=== PATIENT | female | born 1940 | race Caucasian/White ===

== ENCOUNTER 2018-10-04 10:21 | Inpatient (IN) | payer MEDICARE, BC ==
[2018-10-04] MEDS ORDERED: Morphine 2 MG/ML SYRINGE ONE ×3 (10:40→11:35)
[2018-10-04 10:48] LABS: #Lymphocytes 1.2 thou/uL (1.20-3.40); #Monocytes 0.8 thou/uL (0.11-0.59); #Neutrophils 11.3 thou/uL (1.40-6.50); %Basophils 0.4 % (0.0-1.0); %Eosinophils 0.1 % (0.0-10.0); %Lymphocytes 8.7 % (21.0-51.0); %Monocytes 5.8 % (0.0-10.0); Hemoglobin 16.7 g/dL (12.0-16.0); Mean Corpuscular HGB CONC 30.8 g/dL (32.0-36.0); Mean Corpuscular Hemoglobin 26.8 pg (27.0-31.0); Mean Platelet Volume 8.8 fL (7.4-10.4); Platelet Count 247 thou/uL (130-400); RBC Distribution Width 14.1 % (11.5-14.5); Red Blood Cell (RBC) Count 6.23 mill/uL (4.20-5.40); White Blood Cell (WBC) Count 13.3 thou/uL (4.8-10.8)
[2018-10-04] MEDS ORDERED: Ondansetron PF 4 MG/2 ML Vial ONE ×2 (11:06→14:13)
[2018-10-04 11:19] LABS: CKMB 1.4 ng/mL (0-6.6); Troponin I Less than 0.010 ng/mL (< 0.028)
[2018-10-04 11:20] LABS: ALT (SGPT) 14 U/L (8-55); AST (SGOT) 18 U/L (5-34); Alkaline Phosphatase 82 U/L (40-150); Anion Gap 16 mmol/L (10-20); BUN (Urea Nitrogen) 17 mg/dL (9.8-20.1); Bilirubin, Total 1.3 mg/dL (0.2-1.2); CK (CPK) 20 U/L (29-168); Calc. Creatinine Clearance 0 mL/min (70-130); Calcium 10.4 mg/dL (7.8-10.44); Carbon Dioxide 27 mmol/L (23-31); Chloride 100 mmol/L (98-107); Estimated GFR-MDRD 63; Globulin 3.7 g/dL (2.4-3.5); Glucose 189 mg/dL (83-110); Lipase 5 U/L (8-78); Potassium 4.3 mmol/L (3.5-5.1); Protein, Total 7.7 g/dL (6.0-8.3); Sodium 139 mmol/L (136-145)
--- NOTE | 2018-10-04 13:00 | CT ---
CT ABDOMEN AND PELVIS: 10/04/2018 HISTORY: Epigastric pain. Nausea and vomiting. History of ulcerative colitis. COMPARISON: None available. TECHNIQUE: Serial axial CT imaging is obtained at 5 mm intervals, from the lung bases through the pubic symphysi s, without contrast. Coronal reformatted imaging obtained. FINDINGS: The lack of contrast media significantly limits assessment of the viscera, bowel, and vascular struct ures, and for lymphadenopathy. The patient was not administered IV contrast secondary to a reported history of an anaphylactic reaction. There is coronary arterial calcification and there is calcification at the level of the mitral annulu s, incompletely assessed on this exam. The lung bases demonstrate increased linear interstitial dens ity. No free intraperitoneal air is noted. The uterus appears surgically absent. There is small volume, abnormal, perihepatic, and perisplenic free fluid. There is abnormal free fluid noted in the bilater al paracolic gutters as well, right greater than left. Limited assessment of the liver, gallbladder, and spleen demonstrate no acute findings. There is fatty atrophy of the pancreas. The adrenal glands appear grossly unremarkable. Neither kid suman appears obstructed. There is an exophytic cyst emanating from the upper pole of the left kidney. Scattered diverticula of the descending colon and sigmoid colon is seen. No evidence for diverticuli tis. There are multiple abnormal loops of small bowel within the mid lower abdomen, extending into the rig ht lower quadrant. These loops of abnormal small bowel demonstrate wall thickening and are best seen from axial image 49 through axial image 74. There is adjacent stranding of the mesenteric fat with increased density along the vasculature of the mesentery in this region. Vascular structures are poorly assessed on this examination. There is extensive atherosclerotic calc ification of the abdominal aorta and its branches, including the bilateral common internal and apiculturist al iliac arteries. There is atherosclerotic calcification at the origin of the KHARI, celiac artery, a nd bilateral renal arteries. There is fluid within multiple nondilated loops of small bowel in the left upper quadrant. Review of the osseous structures demonstrates a hip prosthesis on the right. The bones are demineral ized. There is multilevel scattered degenerative change noted within the imaged spine. IMPRESSION: There are multiple abnormal thick-walled loops of small bowel within the midline lower abdomen, exten ding into the right lower abdomen/right hemipelvis. There is significant abnormal free fluid noted i n the abdomen/pelvis as well. No free intraperitoneal air. Findings are suspicious for a nonspecifi c enteritis. This includes small bowel ischemia. Inflammatory/infectious process possible as well. A surgical consultation is suggested. Correlation with lactate levels advised as well. Developing small bowel obstruction cannot be excluded. Results called to Dr. Jorje Shaikh at 11:30 a.m. on 10/04/2018. CODE CR POS: [facility]
[2018-10-04] MEDS ORDERED: hydrALAZINE 20 MG/ML VIAL ONE (13:09)
[2018-10-04] MEDS ORDERED: Acetaminophen 650 MG Suppository PR PRN (13:36)
[2018-10-04] MEDS ORDERED: hydrALAZINE 20 MG/ML VIAL SLOW IVP PRN (14:48)
--- NOTE | 2018-10-04 15:28 | HP ---
PRIMARY CARE PROVIDER: Dwain Samuels M.D. CHIEF COMPLAINT: Abdominal pain. HISTORY OF PRESENT ILLNESS: Ms. Larsen is a pleasant 78-year-old lady who was seen at [facility] on 10/04/2018. She was hospitalized at this facility in 04/2016 for Clostrid ium difficile diarrhea and flareup of ulcerative colitis. She was also positive for cryptosporidium antigen during that admission. Her inside sales representative is Dr. Shook and she reports seeing her about 3 months ago. She reports that she woke up feeling fine yesterday morning. Around 9:00 a.m., she felt nauseous and vomited. At the same time, she had abdominal pain. She describes it as in the epigastric region, r adiating to the back, accompanied by nausea and vomiting. She reports vomiting 5 times yesterday and another 4 times overnight. She denies any blood in the vomitus. She reports that she had a small b owel movement today morning. There was no blood in the stool. She reports that she has ongoing naus ea. The pain itself is currently 4/10. It was 10/10 at its worst. She had 3 tablespoons of potato soup without any potato. She started having nausea again. She presented to the emergency room [facility] of ongoing abdominal pain as well as nausea. She reports that the pain felt slightly better when she is lying on the side than when she was lying on her back. REVIEW OF SYSTEMS: All other systems reviewed and found to be negative. PAST MEDICAL HISTORY: Hypertension, ulcerative colitis, myocardial infarction, dyslipidemia, obstruc tive sleep apnea syndrome on CPAP therapy and left eye macular degeneration. PAST SURGICAL HISTORY: Tonsillectomy, appendectomy, right knee surgery, hysterectomy, bladder prolap se surgery, enterocele, oophorectomy, right foot surgery, cardiac stents x3, total right hip replacem ent and bilateral total knee replacement. PSYCHIATRIC HISTORY: Anxiety. FAMILY HISTORY: Significant for stroke and myocardial infarction in her mother. SOCIAL HISTORY: No history of tobacco use, alcohol use or recreational drug use. CODE STATUS: I discussed her code status. She is FULL CODE. ALLERGIES: IODINE, to which she reports anaphylactic reaction. BETA BLOCKERS, CEFDINIR, CLONIDINE, DOXYCYCLINE, NITROFURANTOIN, NONSTEROIDAL ANTI-INFLAMMATORY AGENTS, POTASSIUM CHLORIDE, SPIRONOLACTON E and SULFA. CURRENT MEDICATIONS: Amlodipine 5 mg daily; Plavix 75 mg tablet, half tablet in the morning and half in the evening; Crestor 40 mg at bedtime, lisinopril 40 mg daily, Humira pen use every other ay, eplerenone 25 mg 2 times a day, alprazolam 0.75 mg in the morning and evening, [place] p.r.n., omep razole 20 mg daily, Coenzyme Q10 of 200 mg daily, Ocuvite 1 tablet daily, vitamin D with calcium 1 ta blet daily and tramadol p.r.n. PHYSICAL EXAMINATION: GENERAL: On examination, Ms. Larsen is awake and alert, not in acute distress. VITAL SIGNS: Blood pressure is 110/70, pulse 68, respiratory rate 19, and oxygen saturation 100% on room air. She is afebrile. EYES: No scleral icterus. No conjunctival pallor. ENT: Dry mucosal membranes, no oropharyngeal erythema or exudates. NECK: Supple, nontender, trachea is midline. RESPIRATORY: Accessory muscles of breathing are not active. Chest wall movements are symmetric bila terally. LUNGS: Clear to auscultation without wheeze, rhonchi or crepitations. CARDIOVASCULAR: S1 and S2 are heard, regular. Peripheral pulses palpable. No carotid bruit, no per icardial rub. ABDOMEN: Soft, mild epigastric tenderness, no guarding or rigidity, mild tenderness in the right low er quadrant, no guarding or rigidity, bowel sounds are heard, Bains sign is negative, no hepatomegal y, no splenomegaly. NEUROLOGIC: Cranial nerves II-XII intact, deep tendon reflexes are 2+. MUSCULOSKELETAL: Power is 5/5 in all 4 extremities. SKIN: No rashes or subcutaneous nodules. LYMPHATIC: No cervical lymphadenopathy. PSYCHIATRIC: Normal mood, normal affect, patient is oriented to person, place, and time. LABORATORY DATA: Ms. Larsen's labs and investigations were reviewed. I reviewed her electrocard iogram, which shows sinus bradycardia, no ST changes to suggest an acute coronary syndrome. I also r eviewed CT scan of abdomen and pelvis done without intravenous contrast. She has multiple abnormal t hick-walled loops of small bowel extending from the midline lower abdomen to the right lower quadrant . She also has free fluid in the abdomen and pelvis. She has leukocytosis with 13,300 white cells, of which 85% are neutrophils, elevated hemoglobin of 16.7, normal platelet count, normal electrolytes , normal creatinine, total bilirubin elevated at 1.3, globulin elevated at 3.7, normal troponin I, no rmal AST, normal ALT, normal alkaline phosphatase and a low lipase level of 5. ASSESSMENT AND PLAN: Ms. Larsen is a pleasant 78-year-old lady who was seen at [facility] on 09/24/2018. Her problem list includes: 1. Abdominal pain: Exact etiology unclear at this time. Patient will be admitted to the hospital f or further management. I note that she has an elevated lactic acid level of 2.9, and a repeat lactat e is pending. The differential diagnosis is wide and includes infectious enteritis as well as ischem ic bowel. Because of allergy to CONTRAST, I cannot obtain a CT angiogram at this time. I will arran ge for CT angiogram in the morning after preparing her for IODINE allergy. We will also consult [facility] for opinion and help with management. We will keep patient n.p.o. for now and st art her on p.r.n. intravenous antihypertensives. We will also consult [facility] for op inion and help with management. 2. Hypertension: Start p.r.n. IV antihypertensives. 3. Coronary artery disease: Appears to be stable. The patient does not complain of any chest pain. She has a normal troponin I. 4. Dyslipidemia: Continue statins when patient is able to take oral medications. 5. Leukocytosis: Etiology unclear, could be secondary to dehydration since she also has polycythemi a. We will provide intravenous fluids and recheck. She is currently afebrile and there is no eviden ce of infection, she is not being started on antibiotics. Many thanks for allowing me to participate in your patient's care. Please feel free to contact me wi th any questions or concerns. LEVEL OF RISK: High. LEVEL OF COMPLEXITY: High.
[2018-10-04 15:52] LABS: Lactic Acid 2.1 mmol/L (0.5-2.2)
[2018-10-04 16:34] VITALS: BMI 28.1
[2018-10-04] MEDS ORDERED: Morphine 4 MG/ML VIAL SLOW IVP PRN (16:54)
[2018-10-04] MEDS: Sodium Chloride 0.9% 1,000 ML IV SCH ×2 (17:06→20:22)
[2018-10-04] MEDS ORDERED: Fentanyl 100 MCG/2 ML VIAL SLOW IVP SCH (19:15)
--- NOTE | 2018-10-04 20:57 | CON ---
DATE OF CONSULTATION: 10/04/2018 REQUESTING PHYSICIAN: Dr. Yeboah. HISTORY OF PRESENT ILLNESS: This is an 78-year-old woman who presented to the emergency de partment today with worsening nonspecific crampy abdominal pain which started approximately 1800 hour s yesterday. Pain was rated 5/10 onset and has progressed to 10/10 this morning associated now with multiple episodes of nausea and nonbilious emesis. Patient denies any diarrhea. She denies any feve rs or chills. Her last bowel movement was yesterday. She has not had anything to eat today. She aaron d a little bit of Clarita Tia this morning and has vomited multiple times since that time. She has no t experienced a similar pain in the past. PAST MEDICAL HISTORY: Significant for essential hypertension, ulcerative colitis, coronary arterial disease of which the patient is status post myocardial infarction, she has hyperlipidemia, obstructiv e sleep apnea and left eye macular degeneration. PAST SURGICAL HISTORY: Pertinent for bilateral total knee arthroplasties, right hip arthroplasty, ch ildhood tonsillectomy and adenoidectomy, childhood appendectomy at age 9, total hysterectomy with bi lateral salpingo-oophorectomy, coronary angiography with placement of 3 coronary arterial stents. Karen jeronimo has also had bladder suspension for bladder prolapse. FAMILY HISTORY: Noncontributory for this patient's age. PREHOSPITAL MEDICATIONS. This includes Humira 40 mg subcutaneously, Xanax 0.5 mg p.o. at bedtime, am lodipine 5 mg p.o. daily, vitamin D3 of 2000 units p.o. daily, clopidogrel 37.5 mg p.o. b.i.d., epler enone 12.5 mg p.o. b.i.d., [place] 10/325 mg p.o. daily, lisinopril 40 mg p.o. at bedtime, omeprazole 2 0 mg p.o. daily, prednisone 40 mg p.o. daily, simvastatin 20 mg p.o. daily, Florastor 250 mg p.o. b.i .d., CoQ10 of 200 mg p.o. at bedtime, Ocuvite soft gel 1 capsule p.o. daily. ALLERGIES: IODINE. REVIEW OF SYSTEMS: A 10-point review of system is essentially unremarkable except for as stated in p ast medical history and chief complaint. PHYSICAL EXAMINATION: GENERAL: This reveals an 78-year-old normally-developed woman who is otherwise coherent and interact sonu and appears stated age. Patient is alert and oriented x3. She appears to be in moderate acute d istress secondary to abdominal pain. VITAL SIGNS: Includes blood pressure 110/70, pulse is 68, respiratory rate is 19, temperature is 98. 2 degrees Fahrenheit, oxygen saturation 100% on room air. HEENT: Reveals normocephalic and atraumatic. Pupils are equal, round, and reactive to light and acc ommodation. Extraocular muscles are intact bilaterally. No sclerae icterus present. Oral mucosa is pink though dry. She no oral lesions noted. HEART: Reveals regular rate and rhythm, no murmurs or gallops auscultated. LUNGS: Clear to auscultation bilaterally. Her breathing is regular and unlabored. ABDOMEN: Soft and nondistended. She has diffuse tenderness to palpation with no gross rebound tende rness present. Liver and spleen nonpalpable below costal margin. Bowel sounds in all four quadrants appear normoactive. EXTREMITIES: Reveals 2+ radial and pedal pulses bilaterally. No ankle edema is present. NEUROLOGIC: Reveals no focal deficits present. LABORATORY FINDINGS: Today includes a CBC with 13,300 white blood cells, hemoglobin and hematocrit 1 6.7 and 54.2 respectively. Platelet count is 247,000. Metabolic profile: Sodium 139, potassium is 4.3, chloride is 100, bicarbonate is 27, BUN is 17, creatinine 0.87, glucose is 189. Lactic acid is 2.9, total bilirubin is 1.3, AST and ALT normal at 18 and 14 respectively. Troponin I is less than 0 .10. Serum lipase is normal at 5. I personally reviewed the noncontrast CT scan of the abdomen and pelvis which is remarkable for multi ple fairly-distended loops of small bowel with a thick wall. This is mostly limited to the left uppe r quadrant. There is moderate amount of free fluid in the pelvis. No pneumoperitoneum is evident. IMPRESSION: Nonspecific abdominal pain, likely secondary to ischemic enterocolitis versus gastroente ritis. Given the patient's history of coronary artery disease, we must exclude ischemic etiology of this abdominal pain and limited radiological findings. PLAN: Continue with bowel rest and IV hydration. The patient is allergic to IODINE; therefore, I re commend that we pretreat her and then obtain planned CT angiography of the abdomen and pelvis tomorro w to define the anatomy of mesenteric vasculature. There is no acute surgical indication for this pa tient at this time. We will continue with serial physical examination and make further recommendatio ns as necessary. Above findings and plan have been discussed with the patient, her of 55 years and her adult s on all at bedside. They indicated understanding of information given. I have answered their questio ns. Thank you again, Dr. Yeboah for allowing me the opportunity to participate in the care of this patient .
[2018-10-05] MEDS ORDERED: predniSONE 50 MG TAB PO SCH ×3 (02:15→14:00)
[2018-10-05] MEDS: Fentanyl 100 MCG/2 ML VIAL SLOW IVP PRN ×3 (03:34→17:51)
[2018-10-05 04:57] LABS: #Monocytes 1.8 thou/uL (0.11-0.59); #Neutrophils 15.1 thou/uL (1.40-6.50); %Basophils 0.2 % (0.0-1.0); %Lymphocytes 5.7 % (21.0-51.0); %Monocytes 9.8 % (0.0-10.0); %Neutrophils 84.2 % (42.0-75.0); Hemoglobin 16.5 g/dL (12.0-16.0); Mean Corpuscular HGB CONC 29.6 g/dL (32.0-36.0); Mean Corpuscular Volume 87.8 fL (78.0-98.0); Mean Platelet Volume 8.9 fL (7.4-10.4); Platelet Count 251 thou/uL (130-400); RBC Distribution Width 14.4 % (11.5-14.5); Red Blood Cell (RBC) Count 6.35 mill/uL (4.20-5.40)
[2018-10-05 05:00] LABS: Anion Gap 14 mmol/L (10-20); BUN (Urea Nitrogen) 24 mg/dL (9.8-20.1); Calc. Creatinine Clearance 54 mL/min (70-130); Calcium 9.1 mg/dL (7.8-10.44); Carbon Dioxide 29 mmol/L (23-31); Chloride 105 mmol/L (98-107); Estimated GFR-MDRD 55; Glucose 178 mg/dL (83-110); Potassium 4.5 mmol/L (3.5-5.1); Sodium 143 mmol/L (136-145)
[2018-10-05] MEDS: Sodium Chloride 0.9% 1,000 ML IV SCH ×2 (08:18→23:05)
--- NOTE | 2018-10-05 12:35 | PRG ---
DATE OF SERVICE: 10/05/2018 SUBJECTIVE: Ms. Laresn is an 78-year-old woman admitted yesterday with abdominal pain. Suspicio n of acute ischemic enterocoliis has been investigated with serial abdominal examination. The patien t has been pretreated for iodine allergy prior to repeat CT scan of the abdomen and pelvis with IV co ntrast to evaluate mesenteric vasculature. This morning, the patient reports significant improvement in abdominal pain which she now rates at 3/10 to 4/10 in contrast to 9/10 to 10/10 yesterday. Nause a is also resolving. She has adequate urinary output. OBJECTIVE: VITAL SIGNS: This morning, blood pressure is noted at 154/76, pulse is 96, respiratory rate is 16, t emperature is 97.9 degrees Fahrenheit, oxygen saturation 98% on room air. HEENT: Reveals normocephalic and atraumatic. HEART: Reveals regular rate and rhythm. No murmurs or gallops auscultated. LUNGS: Clear to auscultation bilaterally. Her breathing is regular and unlabored. ABDOMEN: Soft, moderately distended but no significant tenderness to palpation. She clearly has no rebound tenderness present. Liver and spleen nonpalpable below costal margin. NEUROLOGIC: Reveals no focal deficits present. LABORATORY FINDINGS: Today include CBC now with 18,000 white blood cells, hemoglobin and hematocrit 16.5 and 55.7 respectively. Platelet count is 251,000. Metabolic Profile: Sodium 143, potassium is 4.5, chloride is 105, bicarbonate is 29, BUN 24, creatinine is 0.98, glucose is 178. IMPRESSION: 1. Post-admission day #1 with resolving abdominal pain. 2. Probable acute ischemic enterocolitis pending repeat CT scan of the abdomen and pelvis with IV co ntrast. It is also considerable that this may be resolving acute gastroenteritis. PLAN: 1. Continue bowel rest pending CT scan of the abdomen and pelvis. 2. No further surgical indication for this patient at this time. We will review the abdominal CT sc an and make further recommendations as necessary.
[2018-10-05] MEDS ORDERED: diphenhydrAMINE 50 MG CAP PO SCH (14:00)
--- NOTE | 2018-10-05 15:45 | PDOC.PN ---
- Subjective Encounter Start Date: 10/05/18 Encounter Start Time: 11:45 Subjective: pt up in bed still has significant abdominal pain - Objective Resuscitation Status: Resuscitation Status FULL:Full Resuscitation Vital Signs & Weight: Vital Signs (12 hours) Temp Pulse Resp BP Pulse Ox 10/05/18 15:42 98.9 F 105 H 19 166/92 H 10/05/18 11:07 97.9 F 96 16 154/76 H 98 10/05/18 07:53 99 10/05/18 07:32 98.1 F 110 H 19 131/77 98 10/05/18 04:00 97.6 F 99 20 120/77 97 Weight Weight 164 lb I&O: 10/04/18 10/05/18 10/06/18 06:59 06:59 06:59 Intake Total 1540 0 Output Total 200 Balance 1340 0 Result Diagrams: 10/05/18 04:25 10/05/18 04:25 Phys Exam - Physical Examination Neck: no nodes, no JVD, supple, full ROM Respiratory: no wheezing, no rales, no rhonchi, wheezing present, clear to auscultation bilateral Cardiovascular: RRR, no significant murmur, no rub, gallop, irregular Gastrointestinal: soft, positive bowel sounds pain on palpation all over Musculoskeletal: no edema, pulses present, edema present Dx/Plan (1) Abdominal pain Code(s): R10.9 - UNSPECIFIED ABDOMINAL PAIN Status: Acute (2) Nausea & vomiting Code(s): R11.2 - NAUSEA WITH VOMITING, UNSPECIFIED Status: Acute (3) Ulcerative colitis Code(s): K51.90 - ULCERATIVE COLITIS, UNSPECIFIED, WITHOUT COMPLICATIONS Status: Acute - Plan pt states that she still has abdominal pain -: Received a call from radiology concerning for volvulus which could -: be impairing her vasculature. Surgeon was informed. -: pt takes humira one a week every other week. Denies any diarrhea * . Review of Systems - Review of Systems ENT: negative: Ear Pain, Ear Discharge, Nose Pain, Nose Discharge, Nose Congestion, Mouth Pain, Mouth Swelling, Throat Pain, Throat Swelling, Other Respiratory: negative: Cough, Dry, Shortness of Breath, Hemoptysis, SOB with Excertion, Pleuritic Pain, Sputum, Wheezing Cardiovascular: negative: chest pain, palpitations, orthopnea, paroxysmal nocturnal dyspnea, edema, light headedness, other Gastrointestinal: Abdominal Pain Genitourinary: negative: Dysuria, Frequency, Incontinence, Hematuria, Retention , Other - Medications/Allergies Allergies/Adverse Reactions: Allergies Allergy/AdvReac Type Severity Reaction Status Date / Time adhesive tape Allergy Verified 10/04/18 16:05 Beta-Blockers Allergy Verified 10/04/18 16:05 (Beta-Adrenergic Bloc betamethasone Allergy Verified 10/04/18 16:05 [From Celestone] cefdinir Allergy Verified 10/04/18 16:05 clonidine Allergy Verified 10/04/18 16:05 doxycycline Allergy Verified 10/04/18 16:05 iodine Allergy Verified 05/10/16 16:55 nitrofurantoin Allergy Verified 10/04/18 16:05 NSAIDS (Non-Steroidal Allergy Verified 10/04/18 16:05 Anti-Inflamma potassium chloride Allergy Verified 10/04/18 16:05 spironolactone Allergy Verified 10/04/18 16:05 Medications: Current Medications Acetaminophen (Tylenol) 650 mg SC Q4H PRN PRN Reason: Headache/Fever/Mild Pain (1-3) Fentanyl (Sublimaze) 12.5 mcg SLOW IVP Q6H PRN PRN Reason: Pain Last Admin: 10/05/18 09:51 Dose: 12.5 mcg Hydralazine HCl (Apresoline) 10 mg SLOW IVP Q6H PRN PRN Reason: SBP Greater Than 170 Sodium Chloride (Normal Saline 0.9%) 1,000 mls @ 100 mls/hr IV .Q10H RON Last Admin: 10/05/18 08:18 Dose: 1,000 mls Morphine Sulfate (Morphine) 2 mg SLOW IVP Q4H PRN PRN Reason: Severe Pain (7-10) Last Admin: 10/04/18 17:05 Dose: 2 mg
--- NOTE | 2018-10-05 15:58 | CT ---
CTA OF THE ABDOMEN AND PELVIS UTILIZING IV CONTRAST AND 3D REFORMATTED IMAGING: COMPARISON: Recent noncontrast CT of the abdomen and pelvis dated 10/04/2018. FINDINGS: There is a cirrhotic morphology to the liver. No definite focal hepatic lesion is evident. There is a peripheral area of increased [id number] within the peripheral aspect of the right lower hepatic lobe which may be related to transient hepatic attenuation difference. There is moderate to severe narro wing involving the origin and proximal aspect of the celiac artery. There is mild trace free fluid. The adrenal gland is normal-appearing. There are left and right renal cysts. SMA is widely patent. The renal arteries appear widely patent. KHARI is slightly patent. There is rotation of the vascula ture of the right lower quadrant mesentery with limited opacification of the mesenteric arcade of the dilated loop of inflamed small bowel within the right lower quadrant suspicious for an internal volv ulus with vascular occlusion of portions of the pedicle of the SMA. There is good opacification of t he radicals within the left upper quadrant of the abdomen. There are scattered diverticula involving the colon. The colon is partially decompressed. There is diffuse osteopenia. There is scattered d egenerative and osteoarthritic change. IMPRESSION: 1. Findings most consistent with an internal volvulus with limited perfusion of the superior mesente chetan artery arcades to loops of small bowel in the right lower quadrant causing changes of ischemic max wel. There is some mild dilatation of the upstream bowel loops which are likely reactive in nature. Findings were called to Dr. Yeboah at 3:30 p.m. on 10/05/2018. Surgical consultation is recommended. 2. 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 3. Cirrhotic morphology of the liver. Mild ascites. 4. Renal cysts. 5. Colonic diverticulosis. 6. Small bilateral pleural effusions. CODE CR POS: [facility]
[2018-10-05 18:20] LABS: INR-International Normal Ratio 1.1; PTT 23.9 SEC (22.9-36.1); Prothrombin Time 14.4 SEC (12.0-14.7)
[2018-10-05] MEDS ORDERED: Ondansetron HCl/PF 4 MG/2 ML Vial IVP PRN ×2 (18:52→22:24)
[2018-10-05] MEDS ORDERED: Fentanyl 100 MCG/2 ML VIAL ONE ×2 (18:59→19:40)
[2018-10-05] MEDS ORDERED: Bupivacaine/Epinephrine 0.25% 30 ML VIAL ONE (19:40)
[2018-10-05] MEDS ORDERED: Lidocaine 2% Jelly 5 ML TUBE ONE (19:40)
[2018-10-05] MEDS ORDERED: MEROPENEM 1 GM/50 ML 1 GM in Premix Bag 1 BAG IVPB SCH (20:00)
[2018-10-05] MEDS ORDERED: Phenylephrine HCL 10 MG/ML VIAL ONE (20:37)
[2018-10-05] MEDS ORDERED: Promethazine HCl 25 MG/ML VIAL SLOW IVP PRN (22:24)
[2018-10-05] MEDS ORDERED: Promethazine HCl 25 MG/ML VIAL IM PRN (22:24)
[2018-10-05] MEDS ORDERED: HYDROmorphone 2 MG/ML VIAL SLOW IVP PRN (22:24)
[2018-10-05] MEDS ORDERED: PACU-Morphine 4MG/ML VIAL SLOW IVP PRN (22:24)
[2018-10-06] MEDS: Acetaminophen 1,000 MG in Premix Bag 1 BAG IVPB SCH ×4 (00:11→17:48)
--- NOTE | 2018-10-06 00:24 | OP ---
DATE OF PROCEDURE: 10/05/2018 INDICATIONS FOR PROCEDURE: Ms. Larsen is an 78-year-old woman who presented with a 24-hour histo ry of severe crampy abdominal pain for which she was admitted on 10/04/2018. Noncontrast abdominal C T scan revealed multiple thick-walled small bowel and significant free fluid suspicious for either vi ral gastroenteritis or ischemic enteritis. The patient had IODINE allergy and was therefore pretreat ed for an IV contrast, CT scan of the abdomen and pelvis today. She continues to have abdominal pain , although slightly improved. CT scan of the abdomen and pelvis today revealed small bowel volvulus with a compromised vascular anatomy. The patient was brought to the operating room for surgical eval uation. DESCRIPTION OF PROCEDURE: Informed consent obtained from the patient who was brought to the operatin g room and placed in supine position. Following general anesthesia, a Martínez catheter was inserted an d placed bedside drain. Nasogastric tube inserted and placed to wall suction. Abdomen is sterilely prepped and draped in usual fashion. Skin below the umbilicus was infiltrated with 0.25% Marcaine wi th epinephrine. A small curvilinear infraumbilical incision is made using an 11 scalpel. Umbilical stalk was grasped with Lucio's and elevated. Veress needle was inserted through this incision and p laced in the peritoneal cavity through which the abdomen was insufflated with 3 liters of CO2 gas. I ntraabdominal pressure noted at 2 mmHg. Following abdominal insufflation, Veress needle was removed and a 5 mm trocar introduced using the Visiport under laparoscopy. Laparoscopy confirmed proper plac ement of the port, no injuries to underlying structures. Additional laparoscopy revealed large amoun t of hemorrhagic ascites. Further laparoscopy reveals dense pelvic adhesions, so it was decided conv ert this to exploratory laparotomy. To achieve this, abdomen was desufflated. A midline incision is made using #10 scalpel. Incision was carried through subcutaneous tissues maintaining hemostasis us ing cautery. Fascia incised in midline exposing the peritoneum beneath which was grasped x2 with hem ostats. The peritoneal cavity was sharply entered using Metzenbaum scissors. Incision was then exte nded superiorly and inferiorly. A 1600 mL of hemorrhagic ascites was evacuated from the peritoneal c avity. Bookwalter retractor was put in place to gain exposure. Small bowel was run from the ligamen t of Treitz down to distal jejunum to proximal ileum which was completely trapped in the dense adhesi on and the pelvis. Of significance; however, was a portion of the involved general ileal segment in a volvulus fashion. Adhesions were meticulously taken down using Metzenbaum scissors, taking care to avoid enterotomies. There was an adhesive band, which trapped approximately 2 feet in length of dis ac ileum in a closed loop obstructive fashion. This adhesive band was excised. The remainder of th e small bowel was inspected and no other pathology was noted. The mesentery was purplish looking. T he bowel itself appeared initially to be dusky, but once the adhesive band was excised, a small amoun t of peristalsis was noticed in the involved bowel segment. The rest of the large intestine was insp ected from the cecum through the ascending, transverse, descending, sigmoid colon and rectum. No oth er pathology identified. The abdominal cavity was irrigated clear with saline solution noting good h emostasis in place. I observed the involved distal ileum for approximately 10 minutes. The bowel it self began to pink up with better peristalsis. Therefore, we decided to avoid bowel resection at thi s time. We placed a sheet of Seprafilm in the deep pelvis prior to returning small bowel to normal a natomic location. A second large piece of Seprafilm was placed over the small bowel and omentum was drawn over the remainder of the viscera. Fascia was approximated in midline using a running stitch o f #1 single stranded PDS. Subcutaneous tissue was irrigated clear with saline solution and performed hemostasis using cautery. Deep tissues approximated using interrupted sutures of 2-0 Vicryl. Skin incision was then approximated using a running stitch of 4-0 Monocryl suture in subcuticular fashion. The infraumbilical curvilinear incision was also closed using interrupted sutures of 4-0 Monocryl. Dermabond was applied over the incisional closure. The patient tolerated the operation without any apparent complication and was returned to the recovery room in satisfactory condition.
[2018-10-06] MEDS: Sodium Chloride 0.9% 1,000 ML IV SCH ×2 (01:55→13:30)
[2018-10-06 04:09] LABS: Band 8 % (5-11); Lymphocytes 20 % (21-51); MDiff Complete? YES; Mean Corpuscular HGB CONC 31.5 g/dL (32.0-36.0); Mean Corpuscular Hemoglobin 27.4 pg (27.0-31.0); Mean Corpuscular Volume 87.2 fL (78.0-98.0); Mean Platelet Volume 9.9 fL (7.4-10.4); Monocytes 8 % (0-10); Neutrophil 64 % (42-75); PLT Morphology Comment Appears Adequate; Platelet Count 127 thou/uL (130-400); RBC Distribution Width 14.4 % (11.5-14.5); Red Blood Cell (RBC) Count 5.47 mill/uL (4.20-5.40); White Blood Cell (WBC) Count 11.6 thou/uL (4.8-10.8)
[2018-10-06 04:15] LABS: ALT (SGPT) 12 U/L (8-55); AST (SGOT) 16 U/L (5-34); Albumin 2.6 g/dL (3.4-4.8); Alkaline Phosphatase 50 U/L (40-150); Anion Gap 13 mmol/L (10-20); BUN (Urea Nitrogen) 28 mg/dL (9.8-20.1); Bilirubin, Direct 0.3 mg/dL (0.1-0.3); Calc. Creatinine Clearance 64 mL/min (70-130); Calcium 8.2 mg/dL (7.8-10.44); Carbon Dioxide 21 mmol/L (23-31); Chloride 113 mmol/L (98-107); Estimated GFR-MDRD 67; Glucose 142 mg/dL (83-110); Magnesium 1.4 mg/dL (1.6-2.6); Potassium 4.4 mmol/L (3.5-5.1); Protein, Total 5.3 g/dL (6.0-8.3); Sodium 143 mmol/L (136-145)
[2018-10-06] MEDS: ALPRAZolam 0.5 MG TAB PO SCH ×2 (08:18→20:26)
[2018-10-06] MEDS: Morphine 4 MG/ML VIAL SLOW IVP PRN ×2 (08:21→15:10)
[2018-10-06] MEDS ORDERED: Magnesium 2 GM/50 ML 2 GM in Premix Bag 1 BAG IVPB SCH (08:45)
[2018-10-06] MEDS ORDERED: Fentanyl 100 MCG/2 ML VIAL SLOW IVP PRN ×2 (09:00→09:59)
--- NOTE | 2018-10-06 10:07 | PQF ---
DATE: 10-06-18 ATTN: DR. AJMEE NORIEGA Please exercise your independent, professional judgment in responding to the clarification form. Clinical indicators are provided on the bottom of this form for your review Please check appropriate box(es): [ ] Sepsis due to: (probable acute ischemic enterocolitis, infectious enteritis, ischemic bowel , etc.) [ ] SIRS due to non-infectious process (please specify etiology) [ ] Localized infection without sepsis [ x ] Other diagnosis __volvulus causing ischemia [ ] Unable to determine In addition, please specify: Present on Admission (POA): [ x ] Yes [ ] No [ ] Unable to determine For continuity of documentation, please document condition throughout progress notes and discharge summary. Thank You. CLINICAL INDICATORS - SIGNS / SYMPTOMS / LABS ER DX: ABD PAIN, LACTIC ACIDOSIS H&P: ABD PAIN. DIFFERENTIAL DX IS WIDE AND INCLUDES INFECTIOUS ENTERITIS WELL ISCHEMIC BOWEL WBC: 10-04-18: 13.3 10-05-18: 18.0 10-06-18: 11.6 LACTIC ACID: 10-04-18: 2.9 PULSE: 10/05/18: 110, 105, 102 10-06-18: 107, 110 RR: 10-06-18: 25, 22 RISK FACTORS: ER: MULTIPLE ABDOMINAL SURGERIES: APPY, HYSTERECTOMY, BOWEL SUSPENSION H&P: ABD PAIN. DIFFERENTIAL DX IS WIDE AND INCLUDES INFECTIOUS ENTERITIS WELL ISCHEMIC BOWEL ADVANCE AGE TREATMENTS: ER: IVF SURGEON CONSULT 10-04-18 MEROPENEM MAR 10-05-18 (This form is maintained as a part of the permanent medical record) 2014 [email or web address], [email or web address]. All Rights Reserved CHARU [email or web address] Office: [phone] LEATHA
[2018-10-06] MEDS ORDERED: Ketorolac Tromethamine 15 MG/ML VIAL IVP SCH (12:00)
--- NOTE | 2018-10-06 12:05 | PRG ---
DATE OF SERVICE: 10/06/2018 SUBJECTIVE: Ms. Larsen is an 78-year-old woman postop day #1 status post exploratory laparotomy and lysis of adhesion to reduce a closed loop small-bowel obstruction. The patient is awake and aler t today, reporting improved abdominal pain. Her urinary output has been improving. Eileen coma sca le is 15. OBJECTIVE: VITAL SIGNS: This morning includes blood pressure 126/71, pulse is 110, respiratory rate is 25, temp erature is 98.1 degrees Fahrenheit, oxygen saturation is 97% on room air. HEENT: Reveals pupils equal, round, reactive to light and accommodation. She has no jugular venous distention noted. HEART: Reveals regular rate with sinus tachycardia. No murmurs or gallops auscultated. CHEST: Clear to auscultation bilaterally. Breathing is regular and unlabored. ABDOMEN: Soft, nondistended. Incision is intact, clean, and dry. EXTREMITIES: With 2+ radial and pedal pulses bilaterally. No ankle edema is present. NEUROLOGIC: Reveals no focal deficits present. LABORATORY DATA: Today includes a CBC with 11,600 white blood cells in contrast to 18,000 yesterday. Hemoglobin and hematocrit stable at 15.0 and 47.7 respectively. Platelet count is 127,000. Metabo lic profile: Sodium 143, potassium is 4.4, chloride is 113, bicarbonate is 21, BUN 28, creatinine 0. 82, glucose 142, phosphorus 3.0, magnesium is 1.4. IMPRESSION: 1. Postoperative day #1 status post exploratory laparotomy with reduction of acute closed loop small bowel obstruction. 2. Acute hypomagnesemia. PLAN: 1. Correct abnormal electrolytes. 2. The patient is hemodynamically stable for transfer to the general surgical floor. We will increa se activity and discontinue Martínez catheterization at this time. The above findings and plan discussed with the patient who indicates understanding of the information given. I answered her questions. We will initiate a chemical VTE prophylaxis tonight. It will be okay to resume her Plavix tomorrow.
[2018-10-06] MEDS: Ketorolac Tromethamine 30 MG/ML VIAL IVP SCH ×2 (15:15→20:25)
--- NOTE | 2018-10-06 15:36 | PDOC.PN ---
- Subjective Encounter Start Date: 10/06/18 Encounter Start Time: 10:00 -: pt up in bed feel much better - Objective Resuscitation Status: Resuscitation Status FULL:Full Resuscitation Vital Signs & Weight: Vital Signs (12 hours) Temp Pulse Resp BP Pulse Ox 10/06/18 11:24 98.4 F 96 19 120/73 96 10/06/18 07:45 98.1 F 110 H 25 H 126/71 97 10/06/18 04:00 97.8 F 107 H 22 H 117/69 98 Weight Weight 164 lb 4.8 oz I&O: 10/05/18 10/06/18 10/07/18 06:59 06:59 06:59 Intake Total 1540 700 Output Total 200 325 70 Balance 1340 375 -70 Result Diagrams: 10/06/18 03:38 10/06/18 03:38 Phys Exam - Physical Examination Neck: no nodes, no JVD, supple, full ROM Respiratory: no wheezing, no rales, no rhonchi, wheezing present, clear to auscultation bilateral Gastrointestinal: soft, positive bowel sounds mid abd dressing, mild tenderness on touch Dx/Plan (1) Abdominal pain Code(s): R10.9 - UNSPECIFIED ABDOMINAL PAIN Status: Acute (2) Nausea & vomiting Code(s): R11.2 - NAUSEA WITH VOMITING, UNSPECIFIED Status: Acute (3) Ulcerative colitis Code(s): K51.90 - ULCERATIVE COLITIS, UNSPECIFIED, WITHOUT COMPLICATIONS Status: Acute (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 * . Review of Systems - Review of Systems Respiratory: negative: Cough, Dry, Shortness of Breath, Hemoptysis, SOB with Excertion, Pleuritic Pain, Sputum, Wheezing Cardiovascular: negative: chest pain, palpitations, orthopnea, paroxysmal nocturnal dyspnea, edema, light headedness, other Gastrointestinal: negative: Nausea, Vomiting, Abdominal Pain, Diarrhea, Constipation, Melena, Hematochezia, Other Genitourinary: negative: Dysuria, Frequency, Incontinence, Hematuria, Retention , Other - Medications/Allergies Allergies/Adverse Reactions: Allergies Allergy/AdvReac Type Severity Reaction Status Date / Time adhesive tape Allergy Verified 10/04/18 16:05 Beta-Blockers Allergy Verified 10/04/18 16:05 (Beta-Adrenergic Bloc betamethasone Allergy Verified 10/04/18 16:05 [From Celestone] cefdinir Allergy Verified 10/04/18 16:05 clonidine Allergy Verified 10/04/18 16:05 doxycycline Allergy Verified 10/04/18 16:05 iodine Allergy Verified 05/10/16 16:55 nitrofurantoin Allergy Verified 10/04/18 16:05 NSAIDS (Non-Steroidal Allergy Verified 10/04/18 16:05 Anti-Inflamma potassium chloride Allergy Verified 10/04/18 16:05 spironolactone Allergy Verified 10/04/18 16:05 Medications: Current Medications Alprazolam (Xanax) 0.25 mg PO QAM [facility] Last Admin: 10/06/18 08:18 Dose: 0.25 mg Alprazolam (Xanax) 0.5 mg PO HS RON Enoxaparin Sodium (Lovenox) 40 mg SC 2100 [facility] Famotidine (Pepcid) 20 mg SLOW IVP BID [facility] Hydralazine HCl (Apresoline) 10 mg SLOW IVP Q6H PRN PRN Reason: SBP Greater Than 170 Sodium Chloride (Normal Saline 0.9%) 1,000 mls @ 100 mls/hr IV .Q10H [facility] Last Admin: 10/06/18 13:30 Dose: 1,000 mls Meropenem 1 gm/ Device 50 mls @ 100 mls/hr IVPB ONCALL-OR RON Acetaminophen 1,000 mg/ Device 100 mls @ 400 mls/hr IVPB Q6HR [facility] Stop: 10/06/18 23:59 Last Admin: 10/06/18 13:30 Dose: 100 mls Ketorolac Tromethamine (Toradol) 15 mg IVP 0300,0900,1500,2100 [facility] Stop: 10/11/18 15:01 Last Admin: 10/06/18 15:15 Dose: 15 mg Morphine Sulfate (Morphine) 2 mg SLOW IVP Q2H PRN PRN Reason: Severe Pain (7-10) Last Admin: 10/06/18 15:10 Dose: 2 mg
[2018-10-06] MEDS: Enoxaparin Sodium 40 MG/0.4 ML SYRINGE SC SCH (20:25)
[2018-10-06] MEDS: Famotidine/PF 20 mg/2ml Vial SLOW IVP SCH (20:25)
[2018-10-07] MEDS: Acetaminophen 1,000 MG in Premix Bag 1 BAG IVPB SCH (00:33)
[2018-10-07] MEDS: Sodium Chloride 0.9% 1,000 ML IV SCH (00:33)
[2018-10-07] MEDS: Ketorolac Tromethamine 30 MG/ML VIAL IVP SCH ×2 (02:06→09:16)
[2018-10-07 06:22] LABS: Anion Gap 11 mmol/L (10-20); BUN (Urea Nitrogen) 30 mg/dL (9.8-20.1); Calc. Creatinine Clearance 78 mL/min (70-130); Calcium 7.9 mg/dL (7.8-10.44); Carbon Dioxide 20 mmol/L (23-31); Chloride 112 mmol/L (98-107); Estimated GFR-MDRD 83; Glucose 81 mg/dL (83-110); Magnesium 2.2 mg/dL (1.6-2.6); Phosphorus 1.9 mg/dL (2.3-4.7); Sodium 139 mmol/L (136-145)
[2018-10-07 06:45] LABS: Band 18 % (5-11); Hemoglobin 12.1 g/dL (12.0-16.0); Hypochromia SLIGHT = 6-15 cells (100X) (0-5/hpf); Lymphocytes 36 % (21-51); MDiff Complete? YES; Mean Corpuscular HGB CONC 30.5 g/dL (32.0-36.0); Mean Corpuscular Hemoglobin 26.6 pg (27.0-31.0); Mean Corpuscular Volume 87.3 fL (78.0-98.0); Monocytes 10 % (0-10); Neutrophil 36 % (42-75); PLT Morphology Comment Appears Adequate; Platelet Count 141 thou/uL (130-400); RBC Distribution Width 14.1 % (11.5-14.5); Red Blood Cell (RBC) Count 4.55 mill/uL (4.20-5.40); White Blood Cell (WBC) Count 4.2 thou/uL (4.8-10.8)
[2018-10-07] MEDS ORDERED: Lactated Ringer's 1,000 ML IV SCH (07:15)
[2018-10-07] MEDS: ALPRAZolam 0.5 MG TAB PO SCH ×2 (09:15→21:02)
[2018-10-07] MEDS: Famotidine/PF 20 mg/2ml Vial SLOW IVP SCH ×2 (09:15→21:02)
[2018-10-07] MEDS: Clopidogrel Bisulfate 75 MG TAB PO SCH (09:25)
--- NOTE | 2018-10-07 13:15 | PDOC.PN ---
- Subjective Encounter Start Date: 10/07/18 Encounter Start Time: 10:00 Subjective: pt up in bed had a bowl movement - Objective Resuscitation Status: Resuscitation Status FULL:Full Resuscitation Vital Signs & Weight: Vital Signs (12 hours) Temp Pulse Resp BP Pulse Ox 10/07/18 08:20 97.6 F 71 16 106/62 95 10/07/18 04:19 98.0 F 85 16 146/83 H 94 L Weight Weight 164 lb 4.8 oz I&O: 10/06/18 10/07/18 10/08/18 06:59 06:59 06:59 Intake Total 700 Output Total 325 70 Balance 375 -70 Result Diagrams: 10/07/18 05:36 10/07/18 05:36 Phys Exam - Physical Examination Neck: no nodes, no JVD, supple, full ROM Respiratory: no wheezing, no rales, no rhonchi, wheezing present, clear to auscultation bilateral Cardiovascular: RRR, no significant murmur, no rub, gallop, irregular Gastrointestinal: soft, non-tender, no distention, positive bowel sounds Dx/Plan (1) Abdominal pain Code(s): R10.9 - UNSPECIFIED ABDOMINAL PAIN Status: Acute (2) Nausea & vomiting Code(s): R11.2 - NAUSEA WITH VOMITING, UNSPECIFIED Status: Acute (3) Ulcerative colitis Code(s): K51.90 - ULCERATIVE COLITIS, UNSPECIFIED, WITHOUT COMPLICATIONS Status: Acute (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 Review of Systems - Review of Systems Genitourinary: negative: Dysuria, Frequency, Incontinence, Hematuria, Retention , Other - Medications/Allergies Allergies/Adverse Reactions: Allergies Allergy/AdvReac Type Severity Reaction Status Date / Time adhesive tape Allergy Verified 10/04/18 16:05 Beta-Blockers Allergy Verified 10/04/18 16:05 (Beta-Adrenergic Bloc betamethasone Allergy Verified 10/04/18 16:05 [From Celestone] cefdinir Allergy Verified 10/04/18 16:05 clonidine Allergy Verified 10/04/18 16:05 doxycycline Allergy Verified 10/04/18 16:05 iodine Allergy Verified 05/10/16 16:55 nitrofurantoin Allergy Verified 10/04/18 16:05 NSAIDS (Non-Steroidal Allergy Verified 10/04/18 16:05 Anti-Inflamma spironolactone Allergy Verified 10/04/18 16:05 Medications: Current Medications Alprazolam (Xanax) 0.25 mg PO QAM [facility] Last Admin: 10/07/18 09:15 Dose: 0.25 mg Alprazolam (Xanax) 0.5 mg PO HS [facility] Last Admin: 10/06/18 20:26 Dose: 0.5 mg Clopidogrel Bisulfate (Plavix) 75 mg PO DAILY [facility] Last Admin: 10/07/18 09:25 Dose: 75 mg Enoxaparin Sodium (Lovenox) 40 mg SC 2100 [facility] Last Admin: 10/06/18 20:25 Dose: 40 mg Famotidine (Pepcid) 20 mg SLOW IVP BID [facility] Last Admin: 10/07/18 09:15 Dose: 20 mg Hydralazine HCl (Apresoline) 10 mg SLOW IVP Q6H PRN PRN Reason: SBP Greater Than 170 Meropenem 1 gm/ Device 50 mls @ 100 mls/hr IVPB [facility]CALL[facility] Lactated Ringer's (Lactated Ringer's) 1,000 mls @ 75 mls/hr IV .[id number] [facility] Ketorolac Tromethamine (Toradol) 15 mg IVP 0300,0900,1500,2100 [facility] Stop: 10/11/18 15:01 Last Admin: 10/07/18 09:16 Dose: 15 mg Morphine Sulfate (Morphine) 2 mg SLOW IVP Q2H PRN PRN Reason: Severe Pain (7-10) Last Admin: 10/06/18 15:10 Dose: 2 mg
[2018-10-07] MEDS ORDERED: traMADol HCl 50 MG TAB PO PRN ×2 (13:43)
--- NOTE | 2018-10-07 14:35 | PRG ---
DATE OF SERVICE: 10/07/2018 SUBJECTIVE: Ms. Larsen is an 78-year-old woman who is postoperative day #2, status post explorat ory laparotomy for acute small bowel obstruction secondary to closed loop bowel obstruction from intr aabdominal adhesions. The patient reports adequate pain control today. She just started having manny l movements this morning and is passing flatus. Urinary output has been adequate. OBJECTIVE: VITAL SIGNS: This morning includes blood pressure 106/62, pulse is 71, respiratory rate is 16, tempe rature is 97.6 degrees Fahrenheit, oxygen saturation is 95% on room air. HEENT: Reveals normocephalic and atraumatic. HEART: Reveals regular rate and rhythm, no murmurs or gallops auscultated. CHEST: Clear to auscultation bilaterally. Her breathing is regular and unlabored. ABDOMEN: Soft with incisional tenderness to palpation. She clearly has no gross rebound tenderness present. Bowel sounds in all four quadrants appear normoactive. EXTREMITIES: Reveals 2+ radial and pedal pulses bilaterally. No ankle edema is present. NEUROLOGIC: Reveals no focal deficits present. LABORATORY DATA: Today includes a CBC with 4200 white blood cells, hemoglobin and hematocrit 12.1 an d 39.7 respectively. Platelet count is 141,000. Differential counts as follows, 36% segmented neutr ophils, 18 bands, 36 lymphocytes, and 10 monocytes. Metabolic profile: Sodium 139, potassium is 4.0 , chloride is 112, bicarbonate 20, BUN is 30, creatinine is 0.68, glucose is 81. Phosphorus is 1.9, magnesium is 2.2. IMPRESSION: 1. Postop day #2, status post exploratory laparotomy. 2. Now resolved acute small-bowel obstruction. 3. Acute hypophosphatemia. PLAN: 1. Correct abnormal electrolytes. 2. We will start clear liquid diet and continue to encourage patient to ambulate ad lauren. 3. We would saline lock at this time and continue to monitor urinary output as a point of resuscitat ion. 4. Above findings and plan have been discussed with the patient and at bedside. They both i ndicated understanding of information given. I have answered their questions.
[2018-10-07] MEDS: Acetaminophen 500 MG TAB PO SCH ×2 (14:46→21:02)
[2018-10-07] MEDS: Enoxaparin Sodium 40 MG/0.4 ML SYRINGE SC SCH (21:02)
[2018-10-08] MEDS: Acetaminophen 500 MG TAB PO SCH ×4 (02:11→20:06)
[2018-10-08] MEDS: ALPRAZolam 0.5 MG TAB PO SCH ×2 (08:47→20:07)
[2018-10-08] MEDS: Clopidogrel Bisulfate 75 MG TAB PO SCH (08:48)
[2018-10-08] MEDS: Famotidine/PF 20 mg/2ml Vial SLOW IVP SCH ×2 (08:48→20:08)
--- NOTE | 2018-10-08 12:48 | PDOC.PN ---
- Subjective Encounter Start Date: 10/08/18 Encounter Start Time: 10:30 Subjective: pt up in bed was having diarrhea all day yestarday - Objective Resuscitation Status: Resuscitation Status FULL:Full Resuscitation Vital Signs & Weight: Vital Signs (12 hours) Temp Pulse Resp BP Pulse Ox 10/08/18 11:24 97.5 F L 81 20 144/87 H 93 L 10/08/18 08:00 94 L 10/08/18 07:52 98.2 F 77 18 152/89 H 94 L 10/08/18 04:00 97.7 F 82 16 120/68 93 L Weight Weight 164 lb 4.8 oz I&O: 10/07/18 10/08/18 10/09/18 06:59 06:59 06:59 Intake Total 2069 Output Total 70 Balance -70 2069 Result Diagrams: 10/07/18 05:36 10/07/18 05:36 Phys Exam - Physical Examination Respiratory: no wheezing, no rales, no rhonchi, wheezing present, clear to auscultation bilateral Cardiovascular: RRR, no significant murmur, no rub, gallop, irregular Gastrointestinal: soft, non-tender, no distention, positive bowel sounds Musculoskeletal: no edema, pulses present, edema present Dx/Plan (1) Abdominal pain Code(s): R10.9 - UNSPECIFIED ABDOMINAL PAIN Status: Acute (2) Nausea & vomiting Code(s): R11.2 - NAUSEA WITH VOMITING, UNSPECIFIED Status: Acute (3) Ulcerative colitis Code(s): K51.90 - ULCERATIVE COLITIS, UNSPECIFIED, WITHOUT COMPLICATIONS Status: Acute (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 Review of Systems - Review of Systems Respiratory: negative: Cough, Dry, Shortness of Breath, Hemoptysis, SOB with Excertion, Pleuritic Pain, Sputum, Wheezing Cardiovascular: negative: chest pain, palpitations, orthopnea, paroxysmal nocturnal dyspnea, edema, light headedness, other Gastrointestinal: Abdominal Pain, Diarrhea Genitourinary: negative: Dysuria, Frequency, Incontinence, Hematuria, Retention , Other - Medications/Allergies Allergies/Adverse Reactions: Allergies Allergy/AdvReac Type Severity Reaction Status Date / Time adhesive tape Allergy Verified 10/04/18 16:05 Beta-Blockers Allergy Verified 10/04/18 16:05 (Beta-Adrenergic Bloc betamethasone Allergy Verified 10/04/18 16:05 [From Celestone] cefdinir Allergy Verified 10/04/18 16:05 clonidine Allergy Verified 10/04/18 16:05 doxycycline Allergy Verified 10/04/18 16:05 iodine Allergy Verified 05/10/16 16:55 nitrofurantoin Allergy Verified 10/04/18 16:05 NSAIDS (Non-Steroidal Allergy Verified 10/04/18 16:05 Anti-Inflamma spironolactone Allergy Verified 10/04/18 16:05 Medications: Current Medications Acetaminophen (Tylenol) 1,000 mg PO Q6H [facility] Last Admin: 10/08/18 08:47 Dose: 1,000 mg Alprazolam (Xanax) 0.25 mg PO QAM [facility] Last Admin: 10/08/18 08:47 Dose: 0.25 mg Alprazolam (Xanax) 0.5 mg PO HS [facility] Last Admin: 10/07/18 21:02 Dose: 0.5 mg Clopidogrel Bisulfate (Plavix) 75 mg PO DAILY [facility] Last Admin: 10/08/18 08:48 Dose: 75 mg Enoxaparin Sodium (Lovenox) 40 mg SC 2100 [facility] Last Admin: 10/07/18 21:02 Dose: 40 mg Famotidine (Pepcid) 20 mg SLOW IVP BID [facility] Last Admin: 10/08/18 08:48 Dose: 20 mg Hydralazine HCl (Apresoline) 10 mg SLOW IVP Q6H PRN PRN Reason: SBP Greater Than 170 Meropenem 1 gm/ Device 50 mls @ 100 mls/hr IVPB ONCALL-OR RON Tramadol HCl (Ultram) 50 mg PO Q6H PRN PRN Reason: Moderate Pain (4-6) Tramadol HCl (Ultram) 100 mg PO Q6H PRN PRN Reason: Severe Pain (7-10)
--- NOTE | 2018-10-08 13:02 | PRG ---
DATE OF SERVICE: 10/08/2018 SUBJECTIVE: Ms. Larsen is an 78-year-old woman, who is postoperative day #3, status post explora tory laparotomy and lysis of adhesions for acute closed loop small-bowel obstruction. The patient is awake and alert today. She tolerates clear liquid diet. She is having multiple bowel movements. S he is passing flatus. OBJECTIVE: VITAL SIGNS: Today includes blood pressure 152/89, pulse 77, respiratory rate is 18, temperature is 98.2 degrees Fahrenheit, oxygen saturation 94% on room air. HEENT EXAMINATION: Reveals normocephalic and atraumatic. HEART: Reveals regular rate and rhythm, no murmurs or gallops auscultated. CHEST: Clear to auscultation bilaterally. Breathing is regular and unlabored. ABDOMEN: Soft with [id number] tenderness to palpation clearly with no rebound tenderness prese nt. Bowel sounds in all 4 quadrants appear normoactive. EXTREMITIES: Reveal 2+ radial and pedal pulses bilaterally. No ankle edema is present. NEUROLOGICAL EXAMINATION: Reveals no focal deficits present. IMPRESSION: Postoperative day #3, status post exploratory laparotomy. PLAN: Advance diet and activity. Anticipate discharge in the next 24-48 hours.
[2018-10-08 14:47] LABS: Anion Gap 12 mmol/L (10-20); BUN (Urea Nitrogen) 15 mg/dL (9.8-20.1); Calc. Creatinine Clearance 79 mL/min (70-130); Carbon Dioxide 22 mmol/L (23-31); Chloride 109 mmol/L (98-107); Estimated GFR-MDRD 85; Potassium 4.1 mmol/L (3.5-5.1); Sodium 139 mmol/L (136-145)
[2018-10-08 14:48] LABS: Calcium 8.3 mg/dL (7.8-10.44); Glucose 120 mg/dL (83-110); Magnesium 1.6 mg/dL (1.6-2.6)
[2018-10-08 14:52] LABS: Phosphorus 1.7 mg/dL (2.3-4.7)
[2018-10-08] MEDS: Enoxaparin Sodium 40 MG/0.4 ML SYRINGE SC SCH (20:07)
[2018-10-09] MEDS: Acetaminophen 500 MG TAB PO SCH ×4 (03:06→19:49)
[2018-10-09 05:50] LABS: Hemoglobin 11.7 g/dL (12.0-16.0); Lymphocytes 26 % (21-51); MDiff Complete? YES; Mean Corpuscular HGB CONC 31.4 g/dL (32.0-36.0); Mean Corpuscular Hemoglobin 27.3 pg (27.0-31.0); Mean Corpuscular Volume 86.8 fL (78.0-98.0); Mean Platelet Volume 9.1 fL (7.4-10.4); Monocytes 8 % (0-10); Neutrophil 66 % (42-75); PLT Morphology Comment Appears Adequate; Platelet Count 173 thou/uL (130-400); RBC Distribution Width 13.7 % (11.5-14.5); RBC Morphology Normal
[2018-10-09 05:52] LABS: Anion Gap 8 mmol/L (10-20); BUN (Urea Nitrogen) 11 mg/dL (9.8-20.1); Calc. Creatinine Clearance 85 mL/min (70-130); Calcium 8.2 mg/dL (7.8-10.44); Carbon Dioxide 25 mmol/L (23-31); Chloride 111 mmol/L (98-107); Estimated GFR-MDRD Greater than 90; Glucose 92 mg/dL (83-110); Magnesium 1.3 mg/dL (1.6-2.6); Phosphorus 2.1 mg/dL (2.3-4.7); Potassium 3.4 mmol/L (3.5-5.1); Sodium 141 mmol/L (136-145)
[2018-10-09] MEDS ORDERED: Magnesium Sulfate 3 GM in Sodium Chloride 0.9% 100 ML IVPB SCH (06:45)
[2018-10-09] MEDS ORDERED: Potassium Phosphate 30 MMOL, Magnesium Sulfate 3 GM in Sodium Chloride 0.9% 500 ML IVPB SCH (07:00)
[2018-10-09] MEDS ORDERED: Magnesium 2 GM/50 ML 2 GM in Premix Bag 1 BAG IVPB SCH ×2 (07:45→08:45)
[2018-10-09] MEDS ORDERED: Potassium Chloride 20 MEQ TAB PO SCH (07:45)
[2018-10-09] MEDS: ALPRAZolam 0.5 MG TAB PO SCH ×2 (07:51→19:49)
[2018-10-09] MEDS: Clopidogrel Bisulfate 75 MG TAB PO SCH (07:53)
[2018-10-09] MEDS: Famotidine/PF 20 mg/2ml Vial SLOW IVP SCH ×2 (07:53→19:50)
[2018-10-09] MEDS: Saccharomyces boulardii 250 MG CAP PO SCH ×2 (07:54→19:49)
[2018-10-09] MEDS: Amlodipine 5 MG TAB PO SCH (07:55)
[2018-10-09] MEDS ORDERED: EPLERENONE 25 MG PO SCH (09:00)
--- NOTE | 2018-10-09 11:52 | PRG ---
DATE OF SERVICE: 10/09/2018 SUBJECTIVE: Ms. Larsen is an 78-year-old woman who is postoperative day #4 status post explorato ry laparotomy and adhesiolysis for strangulated closed loop small bowel obstruction secondary to adhe marlen. The patient reports adequate pain control today. She has had multiple loose bowel movements over the last 24 hours. She is otherwise tolerating a general diet. Her urinary output has been adequate. OBJECTIVE: VITAL SIGNS: Today includes blood pressure 146/68, pulse is 79, respiratory rate is 16, temperature is 97.6 degrees Fahrenheit, oxygen saturation is 96% on room air. HEENT: Reveals normocephalic and atraumatic. Pupils are equal, round, reactive to light and accommo dation. She has no jugular venous distention noted. HEART: Reveals regular rate and rhythm, no murmurs or gallops auscultated. CHEST: Clear to auscultation bilaterally. Breathing was nonlabored. ABDOMEN: Soft. Incision is intact, clean, and dry. She has mild tenderness to palpation with no gr oss rebound tenderness present. Bowel sounds in all 4 quadrants. Normoactive. NEUROLOGIC: Reveals no focal deficits present. LABORATORY DATA: Today includes a CBC with 8000 white blood cells, hemoglobin and hematocrit 11.7 an d 37.3 respectively. Platelet count is 173,000. Differential counts as follows, 66% segmented neutr ophils, 26 lymphocytes, 8 monocytes, no bands. Metabolic profile: Sodium 141, potassium 3.4, chlori de is 111, bicarbonate 25, BUN 11, creatinine 0.62, glucose 92, magnesium is 1.3, phosphorus is 2.1. IMPRESSION: 1. Postoperative day #4 status post exploratory laparotomy with lysis of adhesion. 2. Acute hypomagnesemia. 3. Acute hypokalemia. 4. Acute hypophosphatemia. PLAN: 1. Correct abnormal electrolytes. 2. Obtain stool sample for C. diff. Meanwhile, we will start the patient on probiotics. The above findings and plan have been discussed with the patient who indicates understanding of the i nformation given. I have answered her questions. I anticipate discharge in the next 24-48 hours.
[2018-10-09] MEDS: Enoxaparin Sodium 40 MG/0.4 ML SYRINGE SC SCH (19:50)
[2018-10-09] MEDS ORDERED: Lisinopril 20 MG TAB PO SCH (21:00)
[2018-10-09] MEDS ORDERED: Rosuvastatin 20 MG TAB PO SCH (21:00)
[2018-10-10] MEDS: Acetaminophen 500 MG TAB PO SCH ×2 (01:52→07:55)
--- NOTE | 2018-10-10 03:13 | PDOC.PN ---
- Subjective Encounter Start Date: 10/09/18 Encounter Start Time: 11:45 Subjective: pt up in bed had significant diarrhea last night - Objective Resuscitation Status: Resuscitation Status FULL:Full Resuscitation Vital Signs & Weight: Vital Signs (12 hours) Temp Pulse Resp BP BP Pulse Ox 10/10/18 00:00 98.1 F 74 22 H 126/63 94 L 10/09/18 22:06 93 L 10/09/18 20:00 97.9 F 86 20 143/70 H 93 L 10/09/18 19:49 143/70 H 10/09/18 15:31 98.1 F 92 18 136/71 97 Weight Weight 164 lb 4.8 oz I&O: 10/08/18 10/09/18 10/10/18 06:59 06:59 06:59 Intake Total 2069 1570 1740 Balance 2069 1570 1740 Result Diagrams: 10/09/18 05:07 10/09/18 05:07 Phys Exam - Physical Examination Neck: no nodes, no JVD, supple, full ROM Respiratory: no wheezing, no rales, no rhonchi, wheezing present, clear to auscultation bilateral Cardiovascular: RRR, no significant murmur, no rub, gallop, irregular mid abd incision Dx/Plan (1) Abdominal pain Code(s): R10.9 - UNSPECIFIED ABDOMINAL PAIN Status: Acute (2) Nausea & vomiting Code(s): R11.2 - NAUSEA WITH VOMITING, UNSPECIFIED Status: Acute (3) Ulcerative colitis Code(s): K51.90 - ULCERATIVE COLITIS, UNSPECIFIED, WITHOUT COMPLICATIONS Status: Acute (4) Duodenal volvulus Code(s): K31.5 - OBSTRUCTION OF DUODENUM Status: Acute - Plan pt tolerating oral diet -: still having diarrhea, c diff ordered. -: electrolytes replaced -: Discharge when ok with surgery * . Review of Systems - Review of Systems Respiratory: negative: Cough, Dry, Shortness of Breath, Hemoptysis, SOB with Excertion, Pleuritic Pain, Sputum, Wheezing Cardiovascular: negative: chest pain, palpitations, orthopnea, paroxysmal nocturnal dyspnea, edema, light headedness, other Gastrointestinal: Diarrhea Genitourinary: negative: Dysuria, Frequency, Incontinence, Hematuria, Retention , Other - Medications/Allergies Allergies/Adverse Reactions: Allergies Allergy/AdvReac Type Severity Reaction Status Date / Time adhesive tape Allergy Verified 10/04/18 16:05 Beta-Blockers Allergy Verified 10/04/18 16:05 (Beta-Adrenergic Bloc betamethasone Allergy Verified 10/04/18 16:05 [From Celestone] cefdinir Allergy Verified 10/04/18 16:05 clonidine Allergy Verified 10/04/18 16:05 doxycycline Allergy Verified 10/04/18 16:05 iodine Allergy Verified 05/10/16 16:55 nitrofurantoin Allergy Verified 10/04/18 16:05 NSAIDS (Non-Steroidal Allergy Verified 10/04/18 16:05 Anti-Inflamma spironolactone Allergy Verified 10/04/18 16:05 Medications: Current Medications Acetaminophen (Tylenol) 1,000 mg PO Q6H [facility] Last Admin: 10/10/18 01:52 Dose: 1,000 mg Alprazolam (Xanax) 0.25 mg PO QAM [facility] Last Admin: 10/09/18 07:51 Dose: 0.25 mg Alprazolam (Xanax) 0.5 mg PO HS [facility] Last Admin: 10/09/18 19:49 Dose: 0.5 mg Amlodipine Besylate (Norvasc) 5 mg PO DAILY [facility] Last Admin: 10/09/18 07:55 Dose: 5 mg Clopidogrel Bisulfate (Plavix) 75 mg PO DAILY [facility] Last Admin: 10/09/18 07:53 Dose: 75 mg Enoxaparin Sodium (Lovenox) 40 mg SC 2100 [facility] Last Admin: 10/09/18 19:50 Dose: 40 mg Famotidine (Pepcid) 20 mg SLOW IVP BID [facility] Last Admin: 10/09/18 19:50 Dose: 20 mg Hydralazine HCl (Apresoline) 10 mg SLOW IVP Q6H PRN PRN Reason: SBP Greater Than 170 Lisinopril (Zestril) 40 mg PO HS [facility] Last Admin: 10/09/18 19:49 Dose: 40 mg Non-Formulary Medication (Eplerenone [Eplerenone]) 25 mg PO BID [facility] Rosuvastatin Calcium (Crestor) 20 mg PO HS [facility] Last Admin: 10/09/18 19:49 Dose: 20 mg Saccharomyces Boulardii (Florastor) 250 mg PO BID [facility] Last Admin: 10/09/18 19:49 Dose: 250 mg Tramadol HCl (Ultram) 50 mg PO Q6H PRN PRN Reason: Moderate Pain (4-6) Tramadol HCl (Ultram) 100 mg PO Q6H PRN PRN Reason: Severe Pain (7-10)
[2018-10-10 05:43] LABS: Anion Gap 10 mmol/L (10-20); BUN (Urea Nitrogen) 9 mg/dL (9.8-20.1); Calc. Creatinine Clearance 88 mL/min (70-130); Calcium 8.5 mg/dL (7.8-10.44); Carbon Dioxide 28 mmol/L (23-31); Chloride 108 mmol/L (98-107); Estimated GFR-MDRD Greater than 90; Glucose 99 mg/dL (83-110); Magnesium 1.6 mg/dL (1.6-2.6); Phosphorus 2.4 mg/dL (2.3-4.7); Potassium 3.5 mmol/L (3.5-5.1); Sodium 142 mmol/L (136-145)
[2018-10-10] MEDS: Clopidogrel Bisulfate 75 MG TAB PO SCH (07:55)
[2018-10-10] MEDS: Amlodipine 5 MG TAB PO SCH (07:55)
[2018-10-10] MEDS: ALPRAZolam 0.5 MG TAB PO SCH (07:55)
[2018-10-10] MEDS: Famotidine/PF 20 mg/2ml Vial SLOW IVP SCH (07:56)
[2018-10-10] MEDS: Saccharomyces boulardii 250 MG CAP PO SCH (07:56)
[2018-10-10] MEDS ORDERED: MAGNESIUM IVPB SCH (10:00)
[2018-10-10] MEDS ORDERED: PRE FILLED IVPB SCH (10:00)
[2018-10-10 12:30] VITALS: BP 155/79; TEMP 97.8
--- NOTE | 2018-10-10 15:37 | PRG ---
DATE OF SERVICE: 10/10/2018 SUBJECTIVE: Ms. Larsen is an 78-year-old woman who is postoperative day #5, status post explorat ory laparotomy and lysis of adhesions for acute closed loop small-bowel obstruction. The patient is awake and alert today. She reported marked decrease in abdominal pain. She is passing flatus and aaron ving bowel movements. Her stool is now firming up. She tolerates general diet and has no nausea or vomiting. OBJECTIVE: VITAL SIGNS: Remains stable with a blood pressure of 157/84, pulse is 89, respiratory rate is 16, te mperature is 98 degrees Fahrenheit. Oxygen saturation is 96% on room air. HEART: Reveals regular rate and rhythm. LUNGS: Clear to auscultation bilaterally. Breathing regular and unlabored. ABDOMEN: Soft, nontender, nondistended. Incision is intact, clean, and healing. She clearly has no peritoneal signs on examination. IMPRESSION: Postop day #5, status post exploratory laparotomy and lysis of adhesions for strangulate d closed loop small-bowel obstruction. PLAN: Patient is certainly hemodynamically stable for discharge home. She follows up with me in the [facility] on 10/17/2018. I have provided her with a prescription for tramadol 50 mg #30 to be taken 1-2 p.o. q.6 hours p.r.n. pain, alternating this with Tylenol 1000 mg p.o. q.6 hours. She is t o resume all her prehospital medications as prescribed by her primary care physician. She follows up with her primary care physician in 1 week with regards to her blood pressure. Above instructions gi manav to the patient. She indicates understanding of information given. I answered her questions.
--- NOTE | 2018-10-11 08:50 | DIS ---
DATE OF ADMISSION: 10/04/2018 DATE OF DISCHARGE: 10/10/2018 DISCHARGE DISPOSITION: Home. FOLLOWUP: 1. Follow up with primary care physician, Dr. Dwain Samuels in 1 week. 2. Follow up with Dr. Mike Stokes next week. DISCHARGE MEDICATIONS: Same as admission medications. BRIEF HOSPITAL COURSE: The patient is an 78-year-old female with hypertension, ulcerative colitis, c oronary artery disease, obstructive sleep apnea, presented to the hospital with abdominal discomfort. Her abdominal CT was consistent with volvulus. The patient was seen by General Surgery, Dr. Stokes. On 10/05/2018, the patient underwent exploratory laparotomy with lysis of radiation. She also had electrolyte abnormalities that were replaced. Stool for C. diff was negative on the day of discharge . She has been cleared by consultants for discharge. DIAGNOSTIC TESTS: Potassium on the day of discharge is 3.5, lowest potassium 3.4, magnesium on the d ay of discharge is 1.6. She received 2 grams magnesium on the day of discharge. Lowest magnesium wa s 1.3. Phosphorus was 1.7, at discharge 2.4. WBC on admission 13.3, at discharge was 8.0. FINAL DIAGNOSES: 1. Systemic inflammatory response syndrome secondary to volvulus. 2. Electrolyte abnormalities including hypomagnesemia, hypokalemia and hypophosphatemia. 3. Hypertension. 4. Coronary artery disease. 5. Dyslipidemia. 6. Iodine allergy. 7. Metabolic acidosis/lactic acidosis. 8. Abnormal liver function tests, secondary to systemic inflammatory response syndrome, improved. 9. Mild protein calorie malnutrition. Plan of care was discussed with the patient and the family in detail. They stated understanding.
== END 2018-10-10 13:15 | disposition home or self-care (01) | DRG 336 ==
LOC: ERS 10:21 → ERHOLD 13:17 → IMCU/EMU 16:00 → SURG A 10-06 15:31
PROVIDERS: ADMIT Internal Medicine; ATTEND Internal Medicine
PROC: 0DN90ZZ Release Duodenum, Open Approach (ICD-10-PCS; principal; 2018-10-05)
DX: K51.912 Ulcerative colitis, unspecified with intestinal obstruction (principal); E87.2 Acidosis; E44.1 Mild protein-calorie malnutrition; K55.9 Vascular disorder of intestine, unspecified; K31.5 Obstruction of duodenum; R65.10 Systemic inflammatory response syndrome (SIRS) of non-infectious origin without acute organ dysfunction; E83.42 Hypomagnesemia; E87.6 Hypokalemia; E83.39 Other disorders of phosphorus metabolism; I10 Essential (primary) hypertension; I25.10 Atherosclerotic heart disease of native coronary artery without angina pectoris; E78.5 Hyperlipidemia, unspecified; Z53.31 Laparoscopic surgical procedure converted to open procedure; Z68.28 Body mass index [BMI] 28.0-28.9, adult
CPT/HCPCS: 36415; 74174; 74176; 80048; 80053; 80076; 82550; 82553; 83605; 83690; 83735; 83880; 84100; 84484; 85007; 85025; 85027; 85610; 85730; 86850; 86900; 86901; 87324; 87449; 93005; 96361; 96374; 96375; 96376; G8978-GP-CJ; G8979-GP-CJ; G8980-GP-CJ; G8987-GO-CI; G8988-GO-CI; G8989-GO-CI; J0131; J0360; J1650; J1885; J2185; J2270; J2370; J2405; J3010; J3475; J7050; S0028

== ENCOUNTER 2018-10-22 09:30 | Emergency (ER) | payer MEDICARE, BC ==
[2018-10-22 10:34] LABS: Mean Corpuscular HGB CONC 32.1 g/dL (32.0-36.0); Mean Corpuscular Hemoglobin 27.6 pg (27.0-31.0); Mean Corpuscular Volume 86.1 fL (78.0-98.0); Mean Platelet Volume 8.1 fL (7.4-10.4); Platelet Count 305 thou/uL (130-400); RBC Distribution Width 13.8 % (11.5-14.5); Red Blood Cell (RBC) Count 4.71 mill/uL (4.20-5.40); White Blood Cell (WBC) Count 6.9 thou/uL (4.8-10.8)
[2018-10-22 10:48] LABS: ALT (SGPT) 22 U/L (8-55); AST (SGOT) 28 U/L (5-34); Albumin 3.4 g/dL (3.4-4.8); Alkaline Phosphatase 84 U/L (40-150); Anion Gap 12 mmol/L (10-20); BUN (Urea Nitrogen) 13 mg/dL (9.8-20.1); Bilirubin, Total 0.4 mg/dL (0.2-1.2); Calc. Creatinine Clearance 0 mL/min (70-130); Calcium 9.8 mg/dL (7.8-10.44); Carbon Dioxide 29 mmol/L (23-31); Chloride 103 mmol/L (98-107); Estimated GFR-MDRD 77; Globulin 3.6 g/dL (2.4-3.5); Glucose 117 mg/dL (83-110); Potassium 3.8 mmol/L (3.5-5.1); Sodium 140 mmol/L (136-145)
[2018-10-22 11:01] LABS: Band 2 % (5-11); Lymphocytes 14 % (21-51); MDiff Complete? YES; Monocytes 21 % (0-10); Neutrophil 61 % (42-75); Reactive Lymphocytes 2 % (0-10)
[2018-10-22] MEDS ORDERED: methylPREDNISolone Sod Succ/PF 125 MG/2 ML VIAL ONE (11:26)
[2018-10-22] MEDS ORDERED: diphenhydrAMINE 50 MG/ML VIAL ONE (11:26)
[2018-10-22] MEDS ORDERED: Famotidine/PF 20 mg/2ml Vial ONE (11:27)
--- NOTE | 2018-10-22 12:43 | CT ---
CT ABDOMEN AND PELVIS WITH IV CONTRAST: INDICATIONS: History of purulent drainage from incision site. COMPARISON: CTA abdomen and pelvis dated 10/05/2018. FINDINGS: There is mild bibasilar atelectasis. No focal hepatic lesion is evident. The pancreas and adrenal glands are unremarkable. Stable bilateral renal cysts. The spleen is unremarkable appearing. The adrenal glands are normal appearing. There is an anterior abdominal wall incision site. No drainable fluid collection is evident along the incision site. Th ere has been interval derotation of the previously seen right lower quadrant internal volvulus. Ther e is some mild wall thickening still involving a ileal loop of small bowel within the lower central a bdomen, best seen on image 54 of series 2. There is no evidence of obstruction. No drainable internship coordinator al fluid collection is evident. There is wall thickening and pericolonic inflammatory stranding invo lving the sigmoid colon, suspicious for colonic diverticulitis. There is scattered vascular calcific ation. There is moderate distention of the bladder. There is stable levoscoliosis of the lumbar spi ne. There are scattered degenerative and osteoarthritic changes. IMPRESSION: 1. Interval development of sigmoid colonic diverticulitis. 2. Resolution of previous seen right lower quadrant small bowel volvulus and improved small bowel wa ll thickening. Focal area of persistent regional enteritis involving a loop of small bowel within th e lower central abdomen. This could be related to ischemia or infectious enteritis. There is no mckenzie dence of obstruction. No drainable fluid collection is evident. 3. No drainable fluid collection is seen along the site of the anterior abdominal wall incisions. 4. Stable renal cyst. POS: [facility]
[2018-10-22] MEDS ORDERED: Iopamidol 370 76% 100 ML VIAL ONE (16:38)
== END 2018-10-22 14:23 | disposition home or self-care (01) ==
LOC: ERS 09:30
DX: K57.32 Diverticulitis of large intestine without perforation or abscess without bleeding (principal); E78.5 Hyperlipidemia, unspecified; I10 Essential (primary) hypertension; F41.9 Anxiety disorder, unspecified; Z79.899 Other long term (current) drug therapy; Z79.891 Long term (current) use of opiate analgesic
CPT/HCPCS: 36415; 74177; 80053; 85025; 87070; 87077; 87186; 87205; 96361; 96374; 96375; J1200; J2930; S0028

== ENCOUNTER 2022-07-16 09:49 | Outpatient (CLI) | payer MEDICARE, BC | END 2022-07-16 09:50 | disposition home or self-care (01) | LOC: BICMAMMO 09:49 | PROVIDERS: ATTEND Internal Medicine | DX: Z12.31 Encounter for screening mammogram for malignant neoplasm of breast (principal); N64.89 Other specified disorders of breast | CPT/HCPCS: 77063; 77067 ==

== ENCOUNTER 2022-07-28 08:40 | Outpatient (CLI) | payer MEDICARE, BC | END 2022-07-28 08:41 | disposition home or self-care (01) | LOC: BICMAMMO 08:40 | PROVIDERS: ATTEND Internal Medicine | DX: N64.89 Other specified disorders of breast (principal) | CPT/HCPCS: 77065; G0279 ==

== ENCOUNTER 2023-06-06 06:44 | Day surgery (SDC) | payer MEDICARE, BC ==
[2023-06-03 09:40] VITALS: BMI 27.1
[2023-06-06 07:54] LABS: %Basophils 0.1 % (0.0-1.0); %Lymphocytes 10.8 % (21.0-51.0); %Monocytes 0.4 % (0.0-10.0); %Neutrophils 88.3 % (42.0-75.0); Hemoglobin 14.1 g/dL (12.0-16.0); Mean Corpuscular HGB CONC 31.2 g/dL (32.0-36.0); Mean Corpuscular Hemoglobin 26.7 pg (27.0-31.0); Mean Corpuscular Volume 85.6 fl (78.0-98.0); Mean Platelet Volume 10.9 fL (7.4-10.4); Platelet Count 187 10x3/uL (130-400); RBC Distribution Width 15.2 % (11.5-14.5); Red Blood Cell (RBC) Count 5.28 mill/uL (4.20-5.40)
[2023-06-06 08:17] LABS: ALT (SGPT) 16 U/L (8-55); AST (SGOT) 21 U/L (5-34); Alkaline Phosphatase 86 U/L (40-110); Anion Gap 16 mmol/L (10-20); BUN (Urea Nitrogen) 16 mg/dL (9.8-20.1); Bilirubin, Total 0.5 mg/dL (0.2-1.2); Calc. Creatinine Clearance 55 mL/min (70-130); Calcium 10.5 mg/dL (7.8-10.44); Carbon Dioxide 25 mmol/L (23-31); Chloride 103 mmol/L (98-107); Estimated GFR 70; Glucose 166 mg/dL (83-110); Potassium 3.5 mmol/L (3.5-5.1); Sodium 140 mmol/L (136-145)
[2023-06-06] MEDS ORDERED: Lidocaine 1% (PF) 30 ML VIAL ONE (08:33)
[2023-06-06] MEDS ORDERED: Midazolam HCl 2 mg/2 ml Vial ONE (08:34)
[2023-06-06] MEDS ORDERED: Heparin 10,000 UNITS/ 10 ML VIAL ONE (08:34)
[2023-06-06] MEDS ORDERED: fentaNYL 50 mcg/mL 1 mL Vial ONE (08:35)
[2023-06-06] MEDS ORDERED: Hydrocortisone Sod Succ/PF 100 mg/2 ml Vial ONE (09:24)
[2023-06-06] MEDS ORDERED: Adenosine 6 MG/2 ML VIAL ONE ×2 (09:28→09:44)
[2023-06-06] MEDS ORDERED: Iopamidol 370 76% 100 ML VIAL ONE (11:39)
== END 2023-06-06 15:11 | disposition home or self-care (01) ==
LOC: SDC 06:44
PROVIDERS: ATTEND Internal Medicine Cardiovascular Disease
DX: I35.0 Nonrheumatic aortic (valve) stenosis (principal); I25.10 Atherosclerotic heart disease of native coronary artery without angina pectoris; I10 Essential (primary) hypertension; I87.2 Venous insufficiency (chronic) (peripheral); I25.2 Old myocardial infarction; G47.33 Obstructive sleep apnea (adult) (pediatric); R06.09 Other forms of dyspnea; Z88.8 Allergy status to other drugs, medicaments and biological substances; Z91.048 Other nonmedicinal substance allergy status; Z88.1 Allergy status to other antibiotic agents; Z91.041 Radiographic dye allergy status; Z90.89 Acquired absence of other organs; Z90.49 Acquired absence of other specified parts of digestive tract; Z90.710 Acquired absence of both cervix and uterus; Z96.653 Presence of artificial knee joint, bilateral; Z79.02 Long term (current) use of antithrombotics/antiplatelets
CPT/HCPCS: 80053; 85025; 93005; J3010; 93010; 93456; 99152; 99153; J0153; J1644; J1720; J2001; J2250

== ENCOUNTER 2023-07-01 11:00 | Inpatient (IN) | payer MEDICARE, BC ==
[2023-07-01 12:35] LABS: Hematocrit 42.8 % (34.9-44.5); Hemoglobin 13.1 g/dL (12.0-15.5); Mean Corpuscular HGB CONC 30.6 g/dL (32.0-36.0); Mean Corpuscular Hemoglobin 26.4 pg (27.0-33.0); Mean Corpuscular Volume 86.1 fl (81.6-98.3); Mean Platelet Volume 11.6 fl (7.4-10.4); Platelet Count 192 10x3/uL (150-450); RBC Distribution Width 16.5 % (11.5-14.5); Red Blood Cell (RBC) Count 4.97 10x6/uL (3.90-5.03); White Blood Cell (WBC) Count 6.6 10x3/uL (3.5-10.5)
[2023-07-01 12:39] LABS: Anion Gap 17 mmol/L (10-20); BUN (Urea Nitrogen) 12 mg/dL (9.8-20.1); Calc. Creatinine Clearance 0 mL/min (70-130); Calcium 9.8 mg/dL (7.8-10.44); Carbon Dioxide 27 mmol/L (23-31); Chloride 103 mmol/L (98-107); Estimated GFR 78; Glucose 101 mg/dL (83-110); Potassium 3.9 mmol/L (3.5-5.1); Sodium 143 mmol/L (136-145)
[2023-07-04] MEDS ORDERED: Albumin 5% 500 ML ONE (06:14)
[2023-07-04] MEDS ORDERED: Lidocaine 1% MPF 2 ML VIAL ONE ×2 (06:21→07:14)
[2023-07-04] MEDS ORDERED: Midazolam HCl 2 mg/2 ml Vial ONE (06:48)
[2023-07-04] MEDS ORDERED: Fentanyl 250 MCG/5 ML VIAL ONE (06:48)
[2023-07-04] MEDS ORDERED: EPINEPHrine 1 MG/ML AMP ONE (06:49)
[2023-07-04] MEDS ORDERED: niCARdipine 25 MG/10 ML SDV ONE (06:49)
[2023-07-04] MEDS ORDERED: Aminocaproic Acid 5 GM/20 ML VIAL ONE ×2 (06:49→07:54)
[2023-07-04] MEDS ORDERED: SUGAMMADEX SODIUM 200 MG/2 ML VIAL ONE (06:49)
[2023-07-04] MEDS ORDERED: Insulin Regular 300 UNITS/3 ML VIAL ONE (06:49)
[2023-07-04] MEDS ORDERED: Vasopressin 20 UNITS/ML VIAL ONE (06:49)
[2023-07-04] MEDS ORDERED: Rocuronium Bromide 50 MG/5 ML VIAL ONE (06:49)
[2023-07-04] MEDS ORDERED: Norepinephrine 4 MG/4 ML VIAL ONE (06:49)
[2023-07-04] MEDS ORDERED: Heparin 10,000 UNITS/1 ML VIAL 30,000 UNITS in Sodium Chloride 0.9% 1,000 ML FS SCH (07:00)
[2023-07-04] MEDS ORDERED: Papaverine 60 MG/2 ML VIAL ONE (07:54)
[2023-07-04] MEDS ORDERED: Cardioplegic Soln 1,000 ML BAG ONE (07:54)
[2023-07-04] MEDS ORDERED: Heparin 5,000 UNITS/ML VIAL ONE (07:54)
[2023-07-04] MEDS ORDERED: Rocuronium Bromide 10 MG/ML (10ML VIAL) ONE (07:54)
[2023-07-04] MEDS ORDERED: Potassium Chloride 60 MEQ/30 ML VIAL ONE (07:54)
[2023-07-04] MEDS ORDERED: Lidocaine 2% PF 100 mg/5 ml Syringe ONE (07:54)
[2023-07-04] MEDS ORDERED: Heparin 30,000 units/30 ml VIAL ONE (07:54)
[2023-07-04] MEDS ORDERED: Magnesium 5 GM/10 ML VIAL ONE (07:54)
[2023-07-04] MEDS ORDERED: Calcium Chloride 1 GM/10 ML Abboject SYRINGE ONE (07:54)
[2023-07-04] MEDS ORDERED: Lidocaine 1% PF 5 ML VIAL ONE (07:54)
[2023-07-04] MEDS ORDERED: PROPOFOL 200 MG/20 ML VIAL ONE (07:54)
[2023-07-04] MEDS ORDERED: Protamine Sulfate 250 MG/25 ML VIAL ONE (07:54)
[2023-07-04] MEDS ORDERED: Mannitol 12.5 GM/50 ML ONE (07:54)
[2023-07-04] MEDS ORDERED: Sodium Bicarb 50 MEQ/50 ML Abboject 8.4% SYRINGE ONE (07:54)
[2023-07-04] MEDS ORDERED: PHENYLEPHRINE-NS 100 MCG/ML 10 ML SYRINGE ONE ×2 (07:54→09:19)
[2023-07-04] MEDS ORDERED: Thrombin 5000 UNITS/5 ML VIAL ONE (07:54)
[2023-07-04] MEDS ORDERED: Vancomycin 1 GM VIAL ONE ×2 (07:54→08:23)
[2023-07-04] MEDS ORDERED: Acetaminophen 325 MG TAB PO PRN (12:10)
[2023-07-04] MEDS ORDERED: HYDROcodone/Acetaminophen 5/325 mg Tablet PO PRN (12:10)
[2023-07-04] MEDS ORDERED: Bisacodyl 5 MG TAB PO PRN (12:10)
[2023-07-04] MEDS ORDERED: Bisacodyl 10 MG SUPP PR PRN (12:10)
[2023-07-04] MEDS ORDERED: Hetastarch 6% 500 ML 500 ML IVPB PRN (12:10)
[2023-07-04] MEDS ORDERED: Post-Op Insulin Drip Protocol IVPB ONE (12:10)
[2023-07-04] MEDS ORDERED: NOREPINEPHRINE 8 MG/250 ML-D5W 250 ML IVPB PRN (12:10)
[2023-07-04] MEDS ORDERED: fentaNYL 50 mcg/mL 1 mL Vial SLOW IVP PRN (12:10)
[2023-07-04] MEDS ORDERED: Promethazine HCl 25 MG/ML VIAL IM PRN (12:10)
[2023-07-04] MEDS ORDERED: Nitroglycerin 50 MG/250 ML BOT 250 ML IVPB PRN (12:10)
[2023-07-04] MEDS ORDERED: niCARdipine 25 MG in Sodium Chloride 0.9% 250 ML 250 ML IVPB PRN (12:10)
[2023-07-04] MEDS ORDERED: Mag-Al 1200 mg/1200 mg/30 ML UDCUP PO PRN (12:10)
[2023-07-04] MEDS ORDERED: DOPamine 400 MG/D5W 250 ML 250 ML IVPB PRN (12:10)
[2023-07-04] MEDS ORDERED: hydrALAZINE 20 MG/ML VIAL SLOW IVP PRN (12:10)
[2023-07-04] MEDS ORDERED: Guaifenesin DM 100-10/5 ML UDCUP PO PRN (12:10)
[2023-07-04] MEDS ORDERED: Ipratropium/Albuterol 3 ML NEB NEB PRN (12:10)
[2023-07-04] MEDS ORDERED: Ondansetron PF 4 MG/2 ML Vial IVP PRN (12:10)
[2023-07-04 12:29] LABS: #Eosinphils 0.1 thou/uL (0.0-0.7); #Monocytes 1.1 thou/uL (0.11-0.59); #Neutrophils 10.5 thou/uL (1.40-6.50); %Basophils 0.2 % (0.0-1.0); %Eosinophils 0.8 % (0.0-10.0); %Lymphocytes 10.9 % (21.0-51.0); %Monocytes 8.1 % (0.0-10.0); %Neutrophils 78.9 % (42.0-75.0); Hematocrit 32.3 % (36.0-47.0); Hemoglobin 10.1 g/dL (12.0-16.0); Mean Corpuscular HGB CONC 31.3 g/dL (32.0-36.0); Mean Corpuscular Hemoglobin 27.3 pg (27.0-31.0); Mean Corpuscular Volume 87.3 fl (78.0-98.0); Mean Platelet Volume 11.5 fL (7.4-10.4); RBC Distribution Width 16.4 % (11.5-14.5); White Blood Cell (WBC) Count 13.3 10x3/uL (4.8-10.8)
[2023-07-04 12:30] LABS: Platelet Count 88 10x3/uL (130-400)
[2023-07-04] MEDS ORDERED: Dextrose 50% Abboject 50 ML SYRINGE SLOW IVP PRN (12:30)
[2023-07-04] MEDS ORDERED: HUMULIN R 100 UNITS in Sodium Chloride 0.9% 100 ML IVPB SCH (12:30)
[2023-07-04] MEDS ORDERED: Glucagon 1 MG/ML KIT SC PRN (12:30)
[2023-07-04] MEDS ORDERED: Dextrose 5% in Water 1,000 ML IV PRN (12:30)
[2023-07-04] MEDS: Insulin Regular 300 UNITS/3 ML VIAL SC PRN ×2 (12:39→19:54)
[2023-07-04 12:43] LABS: INR-International Normal Ratio 1.5; PTT 43.8 sec (22.9-36.1); Prothrombin Time 18.7 sec (12.0-14.7)
[2023-07-04 12:46] LABS: Actual Bicarbonate (HCO3a) 20.9 mEq/L (22-28); CO2 Tension 33.5 mmHg (35.0-45.0); Calcium, Ionized (arterial) 1.14 mmol/L (1.12-1.30); Carboxyhemoglobin (COHb) 0.3 gm% (0.0-3.0); Hematocrit-ABG 33 % (36.0-47.0); Hemoglobin (Hb) 11.1 g/dL (12.0-16.0); O2 Tension (PaO2), arterial 215.9 mmHg (> 60.0); Potassium - ABG Lab 3.64 mmol/L (3.70-5.30); pH, Arterial 7.413 (7.35-7.45)
[2023-07-04 12:46] LABS: Anion Gap 10 mmol/L (10-20); BUN (Urea Nitrogen) 11 mg/dL (9.8-20.1); Calc. Creatinine Clearance 64 mL/min (70-130); Calcium 8.1 mg/dL (7.8-10.44); Carbon Dioxide 21 mmol/L (23-31); Chloride 115 mmol/L (98-107); Estimated GFR 85; Glucose 140 mg/dL (83-110); Potassium 3.8 mmol/L (3.5-5.1); Sodium 142 mmol/L (136-145)
[2023-07-04 12:50] LABS: ALV-art Gradient 98.725 mmHg (0-20); Puncture Site ALINE
[2023-07-04] MEDS: Lactated Ringer's 1,000 ML IV SCH (12:54)
[2023-07-04] MEDS: Morphine 2 MG/ML VIAL SLOW IVP PRN ×2 (13:49→21:40)
[2023-07-04] MEDS: ALPRAZolam 0.5 MG TAB PO SCH ×2 (14:00→21:00)
[2023-07-04] MEDS: Potassium Chloride 20 MEQ/100 ML PREMIX BAG IVPB PRN (14:56)
[2023-07-04 18:23] LABS: Hemoglobin 11.9 g/dL (12.0-16.0)
[2023-07-04 18:46] LABS: Potassium 4.3 mmol/L (3.5-5.1)
[2023-07-04] MEDS ORDERED: Atorvastatin Calcium 10 MG TAB PO SCH (21:00)
[2023-07-04] MEDS: Famotidine/PF 20 mg/2ml Vial SLOW IVP SCH (21:01)
[2023-07-04] MEDS: Vancomycin 1 GM in Premix Bag 1 BAG IVPB SCH (21:02)
[2023-07-05] MEDS: Lactated Ringer's 1,000 ML IV SCH (00:04)
[2023-07-05 03:04] LABS: Actual Bicarbonate (HCO3a) 21.4 mEq/L (22-28); Base Excess (BEa) -2.4 mEq/L (-2.0 to +3.0); CO2 Tension 33.7 mmHg (35.0-45.0); Calcium, Ionized (arterial) 1.21 mmol/L (1.12-1.30); Carboxyhemoglobin (COHb) 0.8 gm% (0.0-3.0); Hematocrit-ABG 37 % (36.0-47.0); Hemoglobin (Hb) 12.5 g/dL (12.0-16.0); O2 Tension (PaO2), arterial 164.6 mmHg (> 60.0); Potassium - ABG Lab 3.85 mmol/L (3.70-5.30)
[2023-07-05 03:06] LABS: ALV-art Gradient 78.475 mmHg (0-20); Puncture Site LBA
[2023-07-05 04:09] LABS: #Monocytes 1.3 thou/uL (0.11-0.59); #Neutrophils 11.4 thou/uL (1.40-6.50); %Basophils 0.1 % (0.0-1.0); %Lymphocytes 5.5 % (21.0-51.0); %Monocytes 9.8 % (0.0-10.0); %Neutrophils 84.1 % (42.0-75.0); Hematocrit 36.1 % (36.0-47.0); Hemoglobin 11.3 g/dL (12.0-16.0); Mean Corpuscular HGB CONC 31.3 g/dL (32.0-36.0); Mean Corpuscular Hemoglobin 27.3 pg (27.0-31.0); Mean Corpuscular Volume 87.2 fl (78.0-98.0); Mean Platelet Volume 12.2 fL (7.4-10.4); Platelet Count 113 10x3/uL (130-400); RBC Distribution Width 16.9 % (11.5-14.5); Red Blood Cell (RBC) Count 4.14 mill/uL (4.20-5.40); White Blood Cell (WBC) Count 13.5 10x3/uL (4.8-10.8)
[2023-07-05 04:28] LABS: Anion Gap 13 mmol/L (10-20); BUN (Urea Nitrogen) 12 mg/dL (9.8-20.1); Calc. Creatinine Clearance 65 mL/min (70-130); Calcium 9.2 mg/dL (7.8-10.44); Carbon Dioxide 22 mmol/L (23-31); Chloride 111 mmol/L (98-107); Estimated GFR 81; Glucose 178 mg/dL (83-110); Potassium 3.8 mmol/L (3.5-5.1); Sodium 142 mmol/L (136-145)
[2023-07-05 06:15] VITALS: BMI 28.9
[2023-07-05] MEDS: Potassium Chloride 20 MEQ/100 ML PREMIX BAG IVPB PRN (07:14)
[2023-07-05] MEDS: ALPRAZolam 0.5 MG TAB PO SCH ×3 (08:59→20:44)
[2023-07-05] MEDS: Aspirin 81 mg Enteric Coated Tablet PO SCH (08:59)
[2023-07-05] MEDS: Famotidine/PF 20 mg/2ml Vial SLOW IVP SCH ×2 (08:59→20:43)
[2023-07-05] MEDS: Magnesium 2 GM/50 ML(in water) 2 GM in Premix Bag 1 BAG IVPB SCH (09:00)
[2023-07-05] MEDS: Vancomycin 1 GM in Premix Bag 1 BAG IVPB SCH (09:00)
[2023-07-05] MEDS: Polyethylene Glycol 3350 17 GM Packet PO SCH (09:00)
[2023-07-05] MEDS: fentaNYL 50 mcg/mL 1 mL Vial SLOW IVP PRN ×2 (09:23→11:25)
[2023-07-05 11:54] LABS: Actual Bicarbonate (HCO3a) 21.5 mEq/L (22-28); Analyzer IN Cardio OR; Base Excess (BEa) -2.8 mEq/L (-2.0 to +3.0); CO2 Tension 35.3 mmHg (35.0-45.0); Calcium, Ionized (arterial) 1.18 mmol/L (1.12-1.30); Carboxyhemoglobin (COHb) 0.2 gm% (0.0-3.0); Hematocrit-ABG 31 % (36.0-47.0); Hemoglobin (Hb) 10.7 g/dL (12.0-16.0); O2 Tension (PaO2), arterial 504.2 mmHg (> 60.0); Potassium - ABG Lab 3.69 mmol/L (3.70-5.30); pH, Arterial 7.402 (7.35-7.45)
[2023-07-05 11:54] LABS: Actual Bicarbonate (HCO3a) 24.3 mEq/L (22-28); Analyzer IN Cardio OR; Base Excess (BEa) 0.9 mEq/L (-2.0 to +3.0); CO2 Tension 34.1 mmHg (35.0-45.0); Calcium, Ionized (arterial) 1.13 mmol/L (1.12-1.30); Carboxyhemoglobin (COHb) 0.3 gm% (0.0-3.0); Hematocrit-ABG 33 % (36.0-47.0); Hemoglobin (Hb) 11.2 g/dL (12.0-16.0); O2 Tension (PaO2), arterial 487.8 mmHg (> 60.0); Potassium - ABG Lab 2.88 mmol/L (3.70-5.30)
[2023-07-05 11:54] LABS: Actual Bicarbonate (HCO3a) 26.2 mEq/L (22-28); Analyzer IN Cardio OR; Base Excess (BEa) 2.7 mEq/L (-2.0 to +3.0); CO2 Tension 36.6 mmHg (35.0-45.0); Calcium, Ionized (arterial) 1.18 mmol/L (1.12-1.30); Carboxyhemoglobin (COHb) 0.8 gm% (0.0-3.0); Hematocrit-ABG 36 % (36.0-47.0); Hemoglobin (Hb) 12.3 g/dL (12.0-16.0); O2 Tension (PaO2), arterial 526.7 mmHg (> 60.0); Potassium - ABG Lab 3.09 mmol/L (3.70-5.30); pH, Arterial 7.473 (7.35-7.45)
[2023-07-05 11:55] LABS: Actual Bicarbonate (HCO3a) 22.7 mEq/L (22-28); Analyzer IN Cardio OR; Base Excess (BEa) -2.7 mEq/L (-2.0 to +3.0); CO2 Tension 41.7 mmHg (35.0-45.0); Calcium, Ionized (arterial) 1.16 mmol/L (1.12-1.30); Carboxyhemoglobin (COHb) 0.1 gm% (0.0-3.0); Hematocrit-ABG 27 % (36.0-47.0); Hemoglobin (Hb) 9.3 g/dL (12.0-16.0); O2 Tension (PaO2), arterial 335.4 mmHg (> 60.0); Potassium - ABG Lab 4.35 mmol/L (3.70-5.30); pH, Arterial 7.353 (7.35-7.45)
[2023-07-05 11:55] LABS: Actual Bicarbonate (HCO3a) 26.7 mEq/L (22-28); Analyzer IN Cardio OR; Base Excess (BEa) 1.5 mEq/L (-2.0 to +3.0); CO2 Tension 45.2 mmHg (35.0-45.0); Calcium, Ionized (arterial) 1.12 mmol/L (1.12-1.30); Hematocrit-ABG 28 % (36.0-47.0); Hemoglobin (Hb) 9.5 g/dL (12.0-16.0); O2 Tension (PaO2), arterial 340.9 mmHg (> 60.0)
[2023-07-05 11:55] LABS: Actual Bicarbonate (HCO3a) 24.6 mEq/L (22-28); Analyzer IN Cardio OR; Base Excess (BEa) 2.3 mEq/L (-2.0 to +3.0); CO2 Tension 29.7 mmHg (35.0-45.0); Calcium, Ionized (arterial) 1.07 mmol/L (1.12-1.30); Carboxyhemoglobin (COHb) 0.2 gm% (0.0-3.0); Hematocrit-ABG 26 % (36.0-47.0); Hemoglobin (Hb) 8.9 g/dL (12.0-16.0); O2 Tension (PaO2), arterial 417.8 mmHg (> 60.0); Potassium - ABG Lab 4.29 mmol/L (3.70-5.30); pH, Arterial 7.536 (7.35-7.45)
[2023-07-05 11:56] LABS: Puncture Site Arterial Line
[2023-07-05 11:56] LABS: Puncture Site Arterial Line
[2023-07-05 11:56] LABS: Actual Bicarbonate (HCO3a) 20.6 mEq/L (22-28); Analyzer IN Cardio OR; Base Excess (BEa) -3.1 mEq/L (-2.0 to +3.0); CO2 Tension 31.5 mmHg (35.0-45.0); Carboxyhemoglobin (COHb) 0.4 gm% (0.0-3.0); Hematocrit-ABG 26 % (36.0-47.0); O2 Tension (PaO2), arterial 491.7 mmHg (> 60.0); Potassium - ABG Lab 3.83 mmol/L (3.70-5.30); pH, Arterial 7.433 (7.35-7.45)
[2023-07-05 11:57] LABS: Puncture Site Arterial Line
[2023-07-05 11:57] LABS: Puncture Site Arterial Line
[2023-07-05 11:58] LABS: Puncture Site Arterial Line
[2023-07-05 11:59] LABS: Puncture Site Arterial Line
[2023-07-05 12:00] LABS: Puncture Site Arterial Line
[2023-07-05] MEDS ORDERED: Insulin Glargine 30 UNITS/0.3 ML VIAL SC PRN (12:29)
[2023-07-05] MEDS: HYDROcodone/Acetaminophen 5/325 mg Tablet PO PRN (14:18)
[2023-07-05] MEDS: Atorvastatin Calcium 20 MG TAB PO SCH (20:43)
[2023-07-06] MEDS ORDERED: Sodium Chloride 0.9% 1,000 ML IV SCH (01:15)
[2023-07-06] MEDS: fentaNYL 50 mcg/mL 1 mL Vial SLOW IVP PRN (03:40)
[2023-07-06 04:18] LABS: #Neutrophils 17.9 thou/uL (1.40-6.50); %Basophils 0.1 % (0.0-1.0); %Lymphocytes 6.2 % (21.0-51.0); %Monocytes 9.5 % (0.0-10.0); %Neutrophils 83.6 % (42.0-75.0); Hematocrit 35.6 % (36.0-47.0); Hemoglobin 11.2 g/dL (12.0-16.0); Mean Corpuscular HGB CONC 31.5 g/dL (32.0-36.0); Mean Corpuscular Hemoglobin 27.5 pg (27.0-31.0); Mean Corpuscular Volume 87.3 fl (78.0-98.0); Mean Platelet Volume 12.4 fL (7.4-10.4); RBC Distribution Width 17.1 % (11.5-14.5); Red Blood Cell (RBC) Count 4.08 mill/uL (4.20-5.40); White Blood Cell (WBC) Count 21.5 10x3/uL (4.8-10.8)
[2023-07-06 04:44] LABS: Platelet Count 108 10x3/uL (130-400)
[2023-07-06] MEDS ORDERED: dilTIAZem 25 MG/5 ML VIAL SLOW IVP SCH (04:45)
[2023-07-06] MEDS: dilTIAZem 125 MG, Admixture Fee 1 EACH in Sodium Chloride 0.9% 100 ML IVPB SCH (05:08)
[2023-07-06] MEDS: HYDROcodone/Acetaminophen 5/325 mg Tablet PO PRN (05:35)
[2023-07-06 06:39] LABS: Anion Gap 13 mmol/L (10-20); BUN (Urea Nitrogen) 11 mg/dL (9.8-20.1); Calc. Creatinine Clearance 71 mL/min (70-130); Calcium 9.4 mg/dL (7.8-10.44); Carbon Dioxide 24 mmol/L (23-31); Chloride 106 mmol/L (98-107); Estimated GFR 85; Glucose 134 mg/dL (83-110); Potassium 3.9 mmol/L (3.5-5.1); Sodium 139 mmol/L (136-145)
[2023-07-06] MEDS: Polyethylene Glycol 3350 17 GM Packet PO SCH ×2 (08:03→08:54)
[2023-07-06] MEDS: Potassium Chloride 20 MEQ/100 ML PREMIX BAG IVPB PRN (08:21)
[2023-07-06] MEDS: Aspirin 81 mg Enteric Coated Tablet PO SCH (08:52)
[2023-07-06] MEDS: ALPRAZolam 0.5 MG TAB PO SCH ×3 (08:52→20:59)
[2023-07-06] MEDS: Famotidine 20 MG TAB PO SCH ×2 (08:52→20:59)
[2023-07-06] MEDS: Magnesium 2 GM/50 ML(in water) 2 GM in Premix Bag 1 BAG IVPB SCH (10:44)
[2023-07-06] MEDS ORDERED: Amiodarone 150 MG, Admixture Fee 1 EACH in Dextrose 5% in Water 100 ML IVPB SCH (16:00)
[2023-07-06] MEDS: Amiodarone 450 MG, Admixture Fee 1 EACH in Dextrose 5% in Water 250 ML IVPB SCH ×2 (16:18→23:18)
[2023-07-06] MEDS: Atorvastatin Calcium 20 MG TAB PO SCH (20:58)
[2023-07-07] MEDS: dilTIAZem 125 MG, Admixture Fee 1 EACH in Sodium Chloride 0.9% 100 ML IVPB SCH (03:29)
[2023-07-07 03:50] LABS: #Monocytes 1.4 thou/uL (0.11-0.59); #Neutrophils 11.2 thou/uL (1.40-6.50); %Basophils 0.1 % (0.0-1.0); %Eosinophils 0.1 % (0.0-10.0); %Lymphocytes 17.5 % (21.0-51.0); %Monocytes 9.3 % (0.0-10.0); %Neutrophils 72.4 % (42.0-75.0); Hematocrit 32.1 % (36.0-47.0); Hemoglobin 10.1 g/dL (12.0-16.0); Mean Corpuscular HGB CONC 31.5 g/dL (32.0-36.0); Mean Corpuscular Hemoglobin 27.4 pg (27.0-31.0); Mean Platelet Volume 12.1 fL (7.4-10.4); RBC Distribution Width 16.8 % (11.5-14.5); Red Blood Cell (RBC) Count 3.69 mill/uL (4.20-5.40); White Blood Cell (WBC) Count 15.5 10x3/uL (4.8-10.8)
[2023-07-07 04:10] LABS: Anion Gap 10 mmol/L (10-20); BUN (Urea Nitrogen) 13 mg/dL (9.8-20.1); Calc. Creatinine Clearance 74 mL/min (70-130); Calcium 8.8 mg/dL (7.8-10.44); Carbon Dioxide 26 mmol/L (23-31); Chloride 104 mmol/L (98-107); Estimated GFR 86; Glucose 126 mg/dL (83-110); Sodium 136 mmol/L (136-145)
[2023-07-07 04:12] LABS: Platelet Count 98 10x3/uL (130-400)
[2023-07-07] MEDS: Potassium Chloride 20 MEQ/100 ML PREMIX BAG IVPB PRN (04:28)
[2023-07-07] MEDS ORDERED: Furosemide 40 MG TAB PO SCH (08:30)
[2023-07-07] MEDS ORDERED: ALPRAZolam 0.25 MG TAB PO SCH ×2 (09:00→09:30)
[2023-07-07] MEDS: Famotidine 20 MG TAB PO SCH ×2 (09:01→20:39)
[2023-07-07] MEDS: Aspirin 81 mg Enteric Coated Tablet PO SCH (09:01)
[2023-07-07] MEDS: Polyethylene Glycol 3350 17 GM Packet PO SCH (09:03)
[2023-07-07] MEDS: Amiodarone 450 MG, Admixture Fee 1 EACH in Dextrose 5% in Water 250 ML IVPB SCH (14:44)
[2023-07-07] MEDS: ALPRAZolam 0.25 MG TAB PO SCH ×2 (15:08→20:39)
[2023-07-07] MEDS: ALPRAZolam 0.5 MG TAB PO SCH (20:00)
[2023-07-07] MEDS: Atorvastatin Calcium 20 MG TAB PO SCH (20:39)
[2023-07-08 04:26] LABS: #Eosinphils 0.1 thou/uL (0.0-0.7); #Monocytes 1.1 thou/uL (0.11-0.59); #Neutrophils 7.9 thou/uL (1.40-6.50); %Basophils 0.2 % (0.0-1.0); %Eosinophils 0.7 % (0.0-10.0); %Lymphocytes 24.6 % (21.0-51.0); %Monocytes 8.7 % (0.0-10.0); %Neutrophils 65.3 % (42.0-75.0); Hematocrit 30.3 % (36.0-47.0); Hemoglobin 9.6 g/dL (12.0-16.0); Mean Corpuscular HGB CONC 31.7 g/dL (32.0-36.0); Mean Corpuscular Hemoglobin 27.3 pg (27.0-31.0); Mean Corpuscular Volume 86.1 fl (78.0-98.0); Mean Platelet Volume 12.3 fL (7.4-10.4); Platelet Count 114 10x3/uL (130-400); RBC Distribution Width 16.5 % (11.5-14.5); Red Blood Cell (RBC) Count 3.52 mill/uL (4.20-5.40); White Blood Cell (WBC) Count 12.2 10x3/uL (4.8-10.8)
[2023-07-08 04:46] LABS: Anion Gap 6 mmol/L (10-20); BUN (Urea Nitrogen) 19 mg/dL (9.8-20.1); Calc. Creatinine Clearance 66 mL/min (70-130); Calcium 8.5 mg/dL (7.8-10.44); Carbon Dioxide 31 mmol/L (23-31); Chloride 104 mmol/L (98-107); Estimated GFR 79; Glucose 113 mg/dL (83-110); Potassium 3.6 mmol/L (3.5-5.1); Sodium 137 mmol/L (136-145)
[2023-07-08] MEDS: Aspirin 81 mg Enteric Coated Tablet PO SCH (05:59)
[2023-07-08] MEDS: Famotidine 20 MG TAB PO SCH ×2 (05:59→09:58)
[2023-07-08] MEDS: Potassium Chloride 20 MEQ/100 ML PREMIX BAG IVPB PRN (05:59)
[2023-07-08] MEDS: ALPRAZolam 0.25 MG TAB PO SCH ×3 (05:59→21:45)
[2023-07-08] MEDS: Furosemide 40 MG TAB PO SCH (05:59)
[2023-07-08] MEDS: Polyethylene Glycol 3350 17 GM Packet PO SCH (06:00)
[2023-07-08] MEDS: Amiodarone 450 MG, Admixture Fee 1 EACH in Dextrose 5% in Water 250 ML IVPB SCH (06:48)
[2023-07-08] MEDS ORDERED: diphenhydrAMINE 50 MG CAP PO SCH (09:15)
[2023-07-08] MEDS ORDERED: Famotidine 20 MG TAB PO SCH (09:15)
[2023-07-08] MEDS ORDERED: predniSONE 20 MG TAB PO SCH (09:45)
[2023-07-08] MEDS ORDERED: Propofol 1,000 MG/100 ML VIAL IV ONE (11:37)
[2023-07-08] MEDS ORDERED: Gentamicin 80 MG/2 ML VIAL ONE (12:27)
[2023-07-08] MEDS ORDERED: Clindamycin/D5W 600 mg/50 ml Premix Bag ONE (12:28)
[2023-07-08] MEDS ORDERED: fentaNYL 50 mcg/mL 1 mL Vial ONE (12:45)
[2023-07-08] MEDS ORDERED: Lidocaine 1% (PF) 30 ML VIAL ONE (12:48)
[2023-07-08] MEDS ORDERED: Midazolam HCl 2 mg/2 ml Vial ONE (13:12)
[2023-07-08] MEDS ORDERED: PHENYLEPHRINE-NS 100 MCG/ML 10 ML SYRINGE ONE (13:15)
[2023-07-08] MEDS ORDERED: Acetaminophen 325 MG TAB PO PRN (14:44)
[2023-07-08] MEDS ORDERED: Acetaminophen/Codeine 30-300mg Tablet PO PRN (14:44)
[2023-07-08] MEDS ORDERED: Artificial Tear Sol 15 ML BOT EA EYE PRN (16:14)
[2023-07-08] MEDS ORDERED: Nitroglycerin 0.4 MG TAB (25 Tab Bottle) SL PRN (16:14)
[2023-07-08] MEDS: Atorvastatin Calcium 20 MG TAB PO SCH (21:45)
[2023-07-08] MEDS: Clindamycin 150 MG CAP PO SCH (21:45)
[2023-07-09] MEDS: Clindamycin 150 MG CAP PO SCH ×3 (05:34→21:03)
[2023-07-09] MEDS: ALPRAZolam 0.25 MG TAB PO SCH ×3 (09:04→21:05)
[2023-07-09] MEDS: Polyethylene Glycol 3350 17 GM Packet PO SCH (09:04)
[2023-07-09] MEDS: Amiodarone 200 MG TAB PO SCH ×2 (09:04→21:03)
[2023-07-09] MEDS: Aspirin 81 mg Enteric Coated Tablet PO SCH (09:04)
[2023-07-09] MEDS: Famotidine 20 MG TAB PO SCH ×2 (09:04→21:02)
[2023-07-09] MEDS: Furosemide 40 MG TAB PO SCH (09:04)
[2023-07-09] MEDS: Atorvastatin Calcium 20 MG TAB PO SCH (21:03)
[2023-07-10] MEDS: Clindamycin 150 MG CAP PO SCH ×3 (05:15→21:10)
[2023-07-10] MEDS: Aspirin 81 mg Enteric Coated Tablet PO SCH (09:47)
[2023-07-10] MEDS: Famotidine 20 MG TAB PO SCH ×2 (09:47→21:09)
[2023-07-10] MEDS: Amiodarone 200 MG TAB PO SCH ×2 (09:47→21:09)
[2023-07-10] MEDS: Furosemide 40 MG TAB PO SCH (09:47)
[2023-07-10] MEDS: Polyethylene Glycol 3350 17 GM Packet PO SCH (09:47)
[2023-07-10] MEDS: ALPRAZolam 0.25 MG TAB PO SCH ×3 (09:47→21:09)
[2023-07-10] MEDS: Atorvastatin Calcium 20 MG TAB PO SCH (21:09)
[2023-07-11] MEDS: Clindamycin 150 MG CAP PO SCH (06:04)
[2023-07-11] MEDS: Aspirin 81 mg Enteric Coated Tablet PO SCH (09:36)
[2023-07-11] MEDS: Amiodarone 200 MG TAB PO SCH ×2 (09:36→22:36)
[2023-07-11] MEDS: dilTIAZem CD 180 MG CAP PO SCH (09:36)
[2023-07-11] MEDS: Furosemide 40 MG TAB PO SCH (09:36)
[2023-07-11] MEDS: Polyethylene Glycol 3350 17 GM Packet PO SCH (09:36)
[2023-07-11] MEDS: Famotidine 20 MG TAB PO SCH ×2 (09:36→22:36)
[2023-07-11] MEDS: ALPRAZolam 0.25 MG TAB PO SCH ×3 (09:36→22:36)
[2023-07-11] MEDS: Atorvastatin Calcium 20 MG TAB PO SCH (22:36)
[2023-07-12 04:48] LABS: #Eosinphils 0.5 thou/uL (0.0-0.7); #Monocytes 1.6 thou/uL (0.11-0.59); #Neutrophils 8.3 thou/uL (1.40-6.50); %Basophils 0.1 % (0.0-1.0); %Eosinophils 3.6 % (0.0-10.0); %Lymphocytes 21.8 % (21.0-51.0); %Neutrophils 61.2 % (42.0-75.0); Hematocrit 33.2 % (36.0-47.0); Hemoglobin 10.5 g/dL (12.0-16.0); Mean Corpuscular HGB CONC 31.6 g/dL (32.0-36.0); Mean Corpuscular Hemoglobin 26.9 pg (27.0-31.0); Mean Corpuscular Volume 85.1 fl (78.0-98.0); Mean Platelet Volume 11.2 fL (7.4-10.4); Platelet Count 214 10x3/uL (130-400); RBC Distribution Width 16.8 % (11.5-14.5); White Blood Cell (WBC) Count 13.5 10x3/uL (4.8-10.8)
[2023-07-12 05:17] LABS: Anion Gap 13 mmol/L (10-20); BUN (Urea Nitrogen) 22 mg/dL (9.8-20.1); Calc. Creatinine Clearance 52 mL/min (70-130); Carbon Dioxide 31 mmol/L (23-31); Chloride 97 mmol/L (98-107); Estimated GFR 65; Glucose 113 mg/dL (83-110); Potassium 3.4 mmol/L (3.5-5.1); Sodium 138 mmol/L (136-145)
[2023-07-12] MEDS ORDERED: Potassium Chloride 20 MEQ TAB PO SCH (06:00)
[2023-07-12] MEDS: Aspirin 81 mg Enteric Coated Tablet PO SCH (09:58)
[2023-07-12] MEDS: dilTIAZem CD 180 MG CAP PO SCH (09:58)
[2023-07-12] MEDS: Famotidine 20 MG TAB PO SCH ×2 (09:58→20:59)
[2023-07-12] MEDS: Amiodarone 200 MG TAB PO SCH ×2 (09:58→20:59)
[2023-07-12] MEDS: ALPRAZolam 0.25 MG TAB PO SCH ×3 (09:58→20:59)
[2023-07-12] MEDS: Polyethylene Glycol 3350 17 GM Packet PO SCH (10:03)
[2023-07-12] MEDS: Atorvastatin Calcium 20 MG TAB PO SCH (20:59)
[2023-07-13] MEDS: Polyethylene Glycol 3350 17 GM Packet PO SCH (10:24)
[2023-07-13] MEDS: Amiodarone 200 MG TAB PO SCH (10:25)
[2023-07-13] MEDS: dilTIAZem CD 180 MG CAP PO SCH (10:25)
[2023-07-13] MEDS: Famotidine 20 MG TAB PO SCH (10:25)
[2023-07-13] MEDS: ALPRAZolam 0.25 MG TAB PO SCH (10:25)
[2023-07-13] MEDS: Aspirin 81 mg Enteric Coated Tablet PO SCH (10:25)
[2023-07-13 11:36] VITALS: BP 112/67; TEMP 98.2
== END 2023-07-13 11:40 | disposition home or self-care (01) | DRG 221 ==
LOC: SURG A 07-04 05:42 → CCU 07-04 11:44 → 2NO 07-08 20:58
PROVIDERS: ADMIT Thoracic Surgery (Cardiothoracic Vascular Surgery); ATTEND Thoracic Surgery (Cardiothoracic Vascular Surgery)
PROC: 02RF08Z Replacement of Aortic Valve with Zooplastic Tissue, Open Approach (ICD-10-PCS; principal; 2023-07-04)
PROC: 02100Z9 Bypass Coronary Artery, One Artery from Left Internal Mammary, Open Approach (ICD-10-PCS; 2023-07-04)
PROC: 021109W Bypass Coronary Artery, Two Arteries from Aorta with Autologous Venous Tissue, Open Approach (ICD-10-PCS; 2023-07-04)
PROC: 06BQ3ZZ Excision of Left Saphenous Vein, Percutaneous Approach (ICD-10-PCS; 2023-07-04)
PROC: 5A1221Z Performance of Cardiac Output, Continuous (ICD-10-PCS; 2023-07-04)
PROC: 02L70CK Occlusion of Left Atrial Appendage with Extraluminal Device, Open Approach (ICD-10-PCS; 2023-07-04)
PROC: 4A133R1 Monitoring of Arterial Saturation, Peripheral, Percutaneous Approach (ICD-10-PCS; 2023-07-04)
PROC: 30233J1 Transfusion of Nonautologous Serum Albumin into Peripheral Vein, Percutaneous Approach (ICD-10-PCS; 2023-07-04)
PROC: 3E033XZ Introduction of Vasopressor into Peripheral Vein, Percutaneous Approach (ICD-10-PCS; 2023-07-04)
PROC: 5A1935Z Respiratory Ventilation, Less than 24 Consecutive Hours (ICD-10-PCS; 2023-07-04)
PROC: 02HK3JZ Insertion of Pacemaker Lead into Right Ventricle, Percutaneous Approach (ICD-10-PCS; 2023-07-04)
PROC: 0BH17EZ Insertion of Endotracheal Airway into Trachea, Via Natural or Artificial Opening (ICD-10-PCS; 2023-07-08)
PROC: 5A1223Z Performance of Cardiac Pacing, Continuous (ICD-10-PCS; 2023-07-08)
PROC: 02H63JZ Insertion of Pacemaker Lead into Right Atrium, Percutaneous Approach (ICD-10-PCS; 2023-07-08)
DX: I25.118 Atherosclerotic heart disease of native coronary artery with other forms of angina pectoris (principal); I35.0 Nonrheumatic aortic (valve) stenosis; I49.5 Sick sinus syndrome; I48.0 Paroxysmal atrial fibrillation; I44.7 Left bundle-branch block, unspecified; I10 Essential (primary) hypertension; I87.2 Venous insufficiency (chronic) (peripheral); I25.2 Old myocardial infarction; E87.6 Hypokalemia; G47.30 Sleep apnea, unspecified; Z88.8 Allergy status to other drugs, medicaments and biological substances; Z79.899 Other long term (current) drug therapy; Z96.653 Presence of artificial knee joint, bilateral; Z98.890 Other specified postprocedural states; Z90.49 Acquired absence of other specified parts of digestive tract; Z90.89 Acquired absence of other organs; Z90.710 Acquired absence of both cervix and uterus; Z87.891 Personal history of nicotine dependence; Z82.49 Family history of ischemic heart disease and other diseases of the circulatory system
CPT/HCPCS: 0439T; 33208; 36415; 36416; 36430; 36600; 71045; 80048; 82805; 85025; 85027; 85610; 85730; 86850; 86900; 86901; 93005; 93010; 93306; 93798; 94002; 94003; 97139; C1713; C1751; C1769; C1776; C1785; C1889; C1898; J0171; J0282; J0360; J1580; J1642; J1644; J1815; J2001; J2150; J2250; J2272; J2440; J2704; J2720; J3010; J3370; J3370-JW; J3475; J3480; J3490; J7050; J7070; J7120; J7512; P9045; S0017; S0028

== ENCOUNTER 2023-12-29 10:06 | Inpatient (IN) | payer BC, MEDICARE ==
[2023-12-29 11:29] LABS: #Eosinphils 0.2 thou/uL (0.0-0.7); #Monocytes 0.6 thou/uL (0.11-0.59); #Neutrophils 3.4 thou/uL (1.40-6.50); %Basophils 0.3 % (0.0-1.0); %Eosinophils 2.5 % (0.0-10.0); %Lymphocytes 31.7 % (21.0-51.0); %Monocytes 9.4 % (0.0-10.0); %Neutrophils 55.6 % (42.0-75.0); Hematocrit 45.5 % (36.0-47.0); Hemoglobin 13.9 g/dL (12.0-16.0); Mean Corpuscular HGB CONC 30.5 g/dL (32.0-36.0); Mean Corpuscular Hemoglobin 27.5 pg (27.0-31.0); Mean Corpuscular Volume 89.9 fl (78.0-98.0); Mean Platelet Volume 11.4 fL (7.4-10.4); Platelet Count 141 10x3/uL (130-400); Red Blood Cell (RBC) Count 5.06 mill/uL (4.20-5.40); White Blood Cell (WBC) Count 6.1 10x3/uL (4.8-10.8)
[2023-12-29 11:53] LABS: ALT (SGPT) 21 U/L (8-55); AST (SGOT) 25 U/L (5-34); Albumin 3.8 g/dL (3.4-4.8); Alkaline Phosphatase 67 U/L (40-110); Anion Gap 12 mmol/L (10-20); BUN (Urea Nitrogen) 18 mg/dL (9.8-20.1); Bilirubin, Total 0.8 mg/dL (0.2-1.2); Calc. Creatinine Clearance 0 mL/min (70-130); Carbon Dioxide 25 mmol/L (23-31); Chloride 106 mmol/L (98-107); Estimated GFR 74; Globulin 3.5 g/dL (2.4-3.5); Glucose 98 mg/dL (83-110); Protein, Total 7.3 g/dL (5.8-8.1); Sodium 139 mmol/L (136-145)
[2023-12-29 11:58] LABS: Troponin I 0.013 ng/mL (< 0.028)
[2023-12-29] MEDS ORDERED: Ondansetron PF 4 MG/2 ML Vial IVP PRN (12:59)
[2023-12-29] MEDS ORDERED: Acetaminophen 325 MG TAB PO PRN (12:59)
[2023-12-29] MEDS ORDERED: Ondansetron ODT 4 MG TAB PO PRN (12:59)
[2023-12-29] MEDS ORDERED: Electrolyte Replacement Protocol 1 EACH FS SCH (13:00)
[2023-12-29] MEDS ORDERED: traMADol HCl 50 MG TAB PO PRN (13:04)
[2023-12-29 20:20] VITALS: BMI 25.4
[2023-12-29] MEDS: CO Q-10 CAPSULE 100 MG PO SCH (21:11)
[2023-12-29] MEDS: ALPRAZolam 0.5 MG TAB PO PRN (21:12)
[2023-12-29] MEDS: Rosuvastatin 20 MG TAB PO SCH (21:12)
[2023-12-30 06:48] LABS: #Eosinphils 0.2 thou/uL (0.0-0.7); #Monocytes 0.5 thou/uL (0.11-0.59); #Neutrophils 3.1 thou/uL (1.40-6.50); %Basophils 0.2 % (0.0-1.0); %Eosinophils 3.7 % (0.0-10.0); %Lymphocytes 37.7 % (21.0-51.0); %Monocytes 8.6 % (0.0-10.0); %Neutrophils 49.5 % (42.0-75.0); Hematocrit 43.4 % (36.0-47.0); Hemoglobin 13.6 g/dL (12.0-16.0); Mean Corpuscular HGB CONC 31.3 g/dL (32.0-36.0); Mean Corpuscular Hemoglobin 27.6 pg (27.0-31.0); Mean Platelet Volume 11.2 fL (7.4-10.4); Platelet Count 155 10x3/uL (130-400); RBC Distribution Width 14.9 % (11.5-14.5); Red Blood Cell (RBC) Count 4.93 mill/uL (4.20-5.40); White Blood Cell (WBC) Count 6.3 10x3/uL (4.8-10.8)
[2023-12-30 07:26] LABS: Anion Gap 12 mmol/L (10-20); BUN (Urea Nitrogen) 14 mg/dL (9.8-20.1); Calc. Creatinine Clearance 57 mL/min (70-130); Calcium 9.7 mg/dL (7.8-10.44); Carbon Dioxide 26 mmol/L (23-31); Chloride 104 mmol/L (98-107); Estimated GFR 78; Glucose 93 mg/dL (83-110); Magnesium 1.4 mg/dL (1.6-2.6); Potassium 3.7 mmol/L (3.5-5.1); Sodium 138 mmol/L (136-145)
[2023-12-30] MEDS: Magnesium Sulfate In Water 4 GM in Premix 1 BAG IVPB SCH (07:44)
[2023-12-30] MEDS ORDERED: Vancomycin 1 GM in Sodium Chloride 0.9% 250 ML 300 ML IVPB SCH (11:00)
[2023-12-30] MEDS ORDERED: Gentamicin 80 MG/2 ML VIAL ONE (11:14)
[2023-12-30] MEDS ORDERED: Lidocaine 1% (PF) 30 ML VIAL ONE (11:14)
[2023-12-30] MEDS ORDERED: CEFAZOLIN 2 GM VIAL ONE (11:14)
[2023-12-30] MEDS: Vancomycin 1 GM in Premix 1 BAG IVPB SCH (11:23)
[2023-12-30] MEDS ORDERED: Ondansetron PF 4 MG/2 ML Vial ONE (13:05)
[2023-12-30] MEDS ORDERED: fentaNYL 50 mcg/mL 1 mL Vial ONE (13:16)
[2023-12-30] MEDS ORDERED: Dexamethasone 20 MG/5 ML VIAL ONE (13:36)
[2023-12-30] MEDS ORDERED: Lidocaine 1% PF 5 ML VIAL ONE (13:36)
[2023-12-30] MEDS ORDERED: PROPOFOL 200 MG/20 ML VIAL ONE (13:36)
[2023-12-30] MEDS ORDERED: PHENYLEPHRINE-NS 100 MCG/ML 10 ML SYRINGE ONE (13:36)
[2023-12-30] MEDS ORDERED: Rocuronium Bromide 10 MG/ML (10ML VIAL) ONE (13:36)
[2023-12-30] MEDS ORDERED: Clindamycin/D5W 900 mg/50 ml Premix Bag ONE (13:47)
[2023-12-30] MEDS ORDERED: SUGAMMADEX SODIUM 200 MG/2 ML VIAL ONE (14:33)
[2023-12-30] MEDS: Floranex 1 GM Packet PO SCH (16:28)
[2023-12-30] MEDS: Aspirin 81 mg Enteric Coated Tablet PO SCH (16:28)
[2023-12-30] MEDS: dilTIAZem CD 180 MG CAP PO SCH (16:30)
[2023-12-31 10:51] VITALS: TEMP 98
[2023-12-31 15:26] VITALS: BP 134/66
== END 2023-12-31 15:43 | disposition home or self-care (01) | DRG 262 ==
LOC: ERS 10:06 → ERHOLD 11:58 → 2NO 20:03
PROVIDERS: ADMIT Family Medicine; ATTEND Family Medicine
PROC: 02PA0MZ Removal of Cardiac Lead from Heart, Open Approach (ICD-10-PCS; principal; 2023-12-30)
PROC: 02H60JZ Insertion of Pacemaker Lead into Right Atrium, Open Approach (ICD-10-PCS; 2023-12-30)
PROC: 0JWT0PZ Revision of Cardiac Rhythm Related Device in Trunk Subcutaneous Tissue and Fascia, Open Approach (ICD-10-PCS; 2023-12-30)
DX: T82.110A Breakdown (mechanical) of cardiac electrode, initial encounter (principal); I10 Essential (primary) hypertension; E83.42 Hypomagnesemia; I25.10 Atherosclerotic heart disease of native coronary artery without angina pectoris; Z95.1 Presence of aortocoronary bypass graft; Z79.82 Long term (current) use of aspirin; Z79.899 Other long term (current) drug therapy; Z91.048 Other nonmedicinal substance allergy status; Z91.041 Radiographic dye allergy status; E78.5 Hyperlipidemia, unspecified; I25.2 Old myocardial infarction; G47.33 Obstructive sleep apnea (adult) (pediatric); Z90.89 Acquired absence of other organs; Z90.710 Acquired absence of both cervix and uterus; Z96.641 Presence of right artificial hip joint; Z87.891 Personal history of nicotine dependence; Y84.8 Other medical procedures as the cause of abnormal reaction of the patient, or of later complication, without mention of misadventure at the time of the procedure
CPT/HCPCS: 33216; 33234; 36415; 36416; 71045; 80048; 80053; 83735; 84484; 85025; 93005; 94760; C1894; C1898; J1100; J1580; J2001; J2405; J2704; J3010; J3370-JW; J3475; J3490

== ENCOUNTER 2024-05-26 09:36 | Emergency (ER) | payer MEDICARE ==
[2024-05-26 10:54] LABS: #Basophils Less than 0.03 10x3/uL (0.0-0.2); %Basophils 0.3 % (0.0-1.0); %Eosinophils 2.2 % (0.0-10.0); %Lymphocytes 29.1 % (21.0-51.0); %Monocytes 10.5 % (0.0-10.0); %Neutrophils 57.7 % (42.0-75.0); Hematocrit 43.2 % (36.0-47.0); Hemoglobin 13.8 g/dL (12.0-16.0); Mean Corpuscular HGB CONC 31.9 g/dL (32.0-36.0); Mean Corpuscular Hemoglobin 27.9 pg (27.0-31.0); Mean Corpuscular Volume 87.3 fL (78.0-98.0); Mean Platelet Volume 11.5 fL (7.4-10.4); Platelet Count 148 10x3/uL (130-400); RBC Distribution Width 14.9 % (11.5-14.5); Red Blood Cell (RBC) Count 4.95 mill/uL (4.20-5.40)
[2024-05-26 11:03] LABS: ALT (SGPT) 22 U/L (8-55); AST (SGOT) 33 U/L (5-34); Albumin 3.6 g/dL (3.4-4.8); Alkaline Phosphatase 70 U/L (40-110); Anion Gap 15 mmol/L (10-20); BUN (Urea Nitrogen) 17 mg/dL (9.8-20.1); Bilirubin, Total 0.9 mg/dL (0.2-1.2); Calc. Creatinine Clearance 0 mL/min (70-130); Calcium 10.1 mg/dL (7.8-10.44); Carbon Dioxide 27 mmol/L (23-31); Chloride 105 mmol/L (98-107); Estimated GFR 72; Globulin 3.6 g/dL (2.4-3.5); Glucose 106 mg/dL (83-110); Lipase 14 U/L (8-78); Potassium 4.2 mmol/L (3.5-5.1); Protein, Total 7.2 g/dL (5.8-8.1); Sodium 143 mmol/L (136-145)
[2024-05-26 13:01] LABS: Troponin I Less than 0.010 ng/mL (< 0.028)
== END 2024-05-26 13:23 | disposition home or self-care (01) ==
LOC: ERS 09:36
DX: I10 Essential (primary) hypertension (principal); E78.5 Hyperlipidemia, unspecified; Z79.899 Other long term (current) drug therapy
CPT/HCPCS: 36415; 36416; 71045; 80053; 83690; 84484; 85025; 93005

== ENCOUNTER 2025-11-07 12:33 | Outpatient (CLI) | payer MEDICARE | END 2025-11-07 12:34 | disposition home or self-care (01) | LOC: CT 12:33 | PROVIDERS: ATTEND Internal Medicine | DX: R41.3 Other amnesia (principal) | CPT/HCPCS: 70450 ==